=== PATIENT | female | born 1955 | race Caucasian/White ===

== ENCOUNTER 2021-05-24 19:30 | Inpatient (IN) | payer BC, MEDICARE ==
[~2021-05-24] VITALS: Ht 160 cm; Wt 90.0 kg
[2021-05-24] VITALS (9 sets, daily range): BP systolic 117–146; BP diastolic 70–85
--- NOTE | 2021-05-24 20:00 | NUR ---
Patient transferred from [facility] via helicopter, in need of a higher level of care due to Covid+ Symptoms to room 108 via cart at 1920, accompanied by RNx2 and Flight RNx2. Patient A/Ox4, denies pain, wearing BiPap with setting of I/E 12/, rate 18, FiO1 100%. Patient reports breathing fine with BiPap. Patient also has Vick catheter placed at previous hospital. Patient oriented to ICU routine, Nursing call light, TV/Bed controls, Numeric Pain scale, Side rail policy, no visitation for Covid + patient's, and POC. All questions answered and patient verbalized understanding. See Admit Information and Admit Assessments.
--- NOTE | 2021-05-24 20:10 | NUR ---
Paged Dr Rodriguez, returned page at 2004, notified of patient's admission. Orders received to admit patient to ICU, Full Code, start Decadron 6MG IVP daily, continue Remdesivir (started at previous hospital), Cardiac diet, BR with BRP with assist, and consult Dr Fenton. Called Dr Fenton at 2009, notified of consult, orders received from Dr Rodriguez, patient on BiPap settings of I/E 12/6, rate 18, FiO2 100% and O2 saturation mid to high 90's. Orders received to start Lovenox 40MG Subcutaneous daily, ask pharmacy to dose Tocilizumab x1 tonight, continue BiPap settings, Vaportherm or BiPap to keep O2 saturation >/= 90%, portable CXR and ABGs in am. See orders. All meds to start on 05/25 except for Tocilizumab--since patient had received other meds at previous hospital today.
--- NOTE | 2021-05-24 20:45 | NUR ---
Dr Rodriguez here to assess patient, all questions answered. Dr Rodriguez to placed orders.
[2021-05-24] MEDS ORDERED: TOCILIZUMAB 400 MG in IV NS TV=100ML IV ONE (21:00)
[2021-05-24] MEDS ORDERED: TOCILIZUMAB 400 MG in IV NORMAL SALINE 100ML 80 ML IV ONE (21:00)
[2021-05-24] MEDS ORDERED: ENOXAPARIN 40 MG/0.4 ML SYRINGE. SQ SCH (21:00)
--- NOTE | 2021-05-24 21:22 | PDOC1 ---
History and Physical Date of Admission Date of Admission DATE: 05/24/21 TIME: 21:12 Identification/Chief Complaint Chief Complaint COVID-19 pneumonia Source Source: Patient History of Present Illness History of Present Illness Patient is a 65-year-old female with no significant stated past medical history who presents as a transfer from [facility] due to worsening respiratory distress after recently been admitted for COVID-19 pneumonia. She states her symptoms began with shortness of breath on 05/16/2021. Her symptoms did not improve she went to the local clinic because she thought she had pneumonia COVID-19, and tested positive for COVID-19 on 05/22/2021. She presented to [facility] the next day and was admitted for respiratory failure. She has not been vaccinated against COVID-19. She was initiated on steroids, empiric antibiotics, remdesivir, and baricitinib. She received 1 dose of remdesivir today. When she began to require BiPAP, I accepted the transfer from the hospitalist at [facility] for higher level of care. Past Medical History Past Medical History Depression Past Surgical History Past Surgical History: Cholecystectomy Family History Family History: Coronary Artery Disease, Diabetes Social History Smoke: No ALCOHOL: none Drugs: None Current Medications Current Medications Current Medications Enoxaparin Sodium (Lovenox 40mg Syringe) 40 mg Q24H SQ ; Start 05/24/21 at 21:00; Status Cancel Tocilizumab 480 mg/Sodium Chloride 100 ml @ 100 mls/hr 1X ONCE IV ; Start 05/24/21 at 21:00; Stop 05/24/21 at 21:59; Status Cancel Tocilizumab 400 mg/Sodium Chloride 100 ml @ 100 mls/hr 1X ONCE IV ; Start 05/24/21 at 21:00; Stop 05/24/21 at 21:59 Enoxaparin Sodium (Lovenox 40mg Syringe) 40 mg Q24H SQ ; Start 05/25/21 at 09:00 Allergies Allergies: Coded Allergies: No Known Drug Allergies (Unverified , 05/24/21) ROS Review of System GENERAL: No history of weight change, weakness or fevers. SKIN: No bruising, hair changes or rashes. EYES: No blurred, double or loss of vision. NOSE AND THROAT: No history of nosebleeds, hoarseness or sore throat. HEART: Denies chest pain, denies palpitations. LUNGS: Shortness of breath, cough. Denies hemoptysis, wheezing or shortness of breath. GASTROINTESTINAL: Denies nausea, vomiting, abdominal pain. GENITOURINARY: Denies dysuria, frequency, urgency, hematuria. NEUROLOGIC: Denies history of numbness, tingling, tremor or weakness. PSYCHIATRIC: Denies anxiety, denies depression. ENDOCRINE: No history of heat or cold intolerance, polyuria or polydipsia. EXTREMITIES: Denies muscle weakness, joint pain, pain on walking or stiffness. Physical Exam Physical Exam General: Alert, Oriented X3, Cooperative, No acute distress HEENT: PERRLA, EOMI Lungs: Decreased breath sounds bilaterally, no increased work of breathing, currently breathing comfortably on BiPAP. Heart: RRR, no murmurs Cardiovascular: S1, S2 Abdomen: Normal bowel sounds, Soft, No tenderness Extremities: No clubbing, No cyanosis Skin: No rashes, No significant lesion Neuro: Normal speech, Normal tone, Sensation intact Psych/Mental Status: Mental status NL, Mood NL Vitals Vitals Vital Signs Date Time Temp Pulse Resp B/P (MAP) Pulse Ox O2 Delivery O2 Flow Rate FiO2 05/24/21 19:35 99 BiPAP/CPAP VTE Prophylaxis Ordered VTE Prophylaxis Devices: No VTE Pharmacological Prophylaxi: Yes Assessment/Plan Assessment/Plan Acute respiratory failure with hypoxia COVID-19 pneumonia History depression Plan: Patient has been admitted to the ICU Consultation placed to pulmonology We will continue treatment with remdesivir, and monitor daily LFTs Decadron 6 mg daily Will obtain CRP and gauge for appropriateness of Actemra Symptomatic management FEN - Cardiac diet PPX - Lovenox FULL CODE Dispo - inpatient for above Patient names her mother (Benita Baires) as surrogate decision-maker Justifications for Admission Other Justification KIRILL TIM MD May 24, 2021 21:22
[2021-05-24] MEDS ORDERED: 0.9 % SODIUM CHLORIDE 10 ML DISP.SYRIN. IV PRN (21:30)
[2021-05-24] MEDS ORDERED: MAGNESIUM HYDROXIDE 2,400 MG/30 ML ORAL.SUSP. PO PRN (21:30)
[2021-05-24] MEDS ORDERED: HYDROcodone/APAP 5/325MG 1 TAB TABLET PO PRN (21:30)
[2021-05-24] MEDS ORDERED: ONDANSETRON PF 4 MG/2 ML VIAL. IVP PRN (21:30)
[2021-05-24] MEDS ORDERED: diphenhydrAMINE 50 MG/ML VIAL IVP PRN (21:30)
[2021-05-24] MEDS ORDERED: cefTRIAXone IV Push 1 GM VIAL. IVP SCH (22:00)
[2021-05-25] VITALS (23 sets, daily range): BP systolic 104–131; BP diastolic 62–80
--- NOTE | 2021-05-25 04:58 | RAD ---
XR CHEST 1V History: Reason: Covid + / Spl. Instructions: / History: Shortness of breath Comparison: None. Findings: Mild multifocal ill-defined opacities bilaterally. Small right pleural effusion. Portable technique a ccentuates cardiac size. No pneumothorax. Impression: 1. Mild multifocal ill-defined opacities bilaterally, can be seen with viral pneumonia. 2. Small right pleural effusion. Electronically signed by: Kartik Zapata DO (05/25/2021 4:56 AM) [facility]
[2021-05-25 05:37] LABS: BASO % 0 % (0-3); EOS % 0 % (0-3); HEMATOCRIT 43.2 % (36.0-47.0); HEMOGLOBIN 14.3 g/dL (12.0-15.5); LYMPH # 0.6 x10^3/uL (1.0-4.8); LYMPH % 8 % (24-48); MEAN CORPUSCULAR HEMOGLOBIN 29 pg (25-35); MEAN CORPUSCULAR HGB CONC 33 g/dL (31-37); MEAN CORPUSCULAR VOLUME 87 fL (79-100); MONO # 0.4 x10^3/uL (0.0-1.1); MONO % 6 % (0-9); NEUT % 87 % (31-73); PLATELET COUNT 180 x10^3/uL (140-400); RED BLOOD COUNT 4.99 x10^6/uL (3.50-5.40); WHITE BLOOD COUNT 8.1 x10^3/uL (4.0-11.0)
[2021-05-25 06:29] LABS: ALBUMIN 2.2 g/dL (3.4-5.0); CALCIUM 7.9 mg/dL (8.5-10.1); CREATININE 0.7 mg/dL (0.6-1.0); DIRECT BILIRUBIN 0.1 mg/dL (0.0-0.2); GFR 83.5; POTASSIUM 3.4 mmol/L (3.5-5.1); TOTAL BILIRUBIN 0.3 mg/dL (0.2-1.0); TOTAL PROTEIN 5.7 g/dL (6.4-8.2)
[2021-05-25 07:48] LABS: BASE EXCESS COOX 4 mmol/L (-3-3); HCO3 COOX 27 mmol/L (21-28); METHEMOGLOBIN 0.2 % (0.0-1.9); OXYHEMOGLOBIN 89.9 %; PCO2 COOX 36 mmHg (35-46); PO2 COOX 57 mmHg (65-108); SAT O2 COOX 90 % (92-99)
[2021-05-25] MEDS: REMDESIVIR 100mg in NORMAL SALINE 250ML X 4 DAYS IV SCH (09:33)
[2021-05-25] MEDS: DEXAMETHASONE SOD PHOS 4 MG/ML VIAL IVP SCH (09:36)
[2021-05-25] MEDS: guaiFENesin/CODEINE 100mg/10mg 5 ML LIQUID PO PRN (09:37)
[2021-05-25] MEDS: LACTOBACILLUS RHAMNOSUS GG 1 CAPSULE. PO SCH ×2 (09:37→20:34)
[2021-05-25] MEDS: ZINC SULFATE 220 MG CAPSULE. PO SCH (09:37)
[2021-05-25] MEDS: ASCORBIC ACID 500 MG TABLET PO SCH ×2 (09:37→20:34)
[2021-05-25] MEDS: ENOXAPARIN 40 MG/0.4 ML SYRINGE. SQ SCH (09:39)
[2021-05-25] MEDS: cefTRIAXone IV Push 1 GM VIAL. IVP SCH (09:39)
--- NOTE | 2021-05-25 13:52 | PDOC ---
PULMONARY PROGRESS NOTES DATE: 05/25/21 TIME: 13:50 Vitals Vital Signs Date Time Temp Pulse Resp B/P (MAP) Pulse Ox O2 Delivery O2 Flow Rate FiO2 05/25/21 11:28 93 VAPOTHERM 05/25/21 06:00 46 18 121/72 (88) 40.0 05/25/21 04:00 98.4 98.4 Labs Laboratory Tests Test 05/24/21 22:10 05/25/21 04:45 05/25/21 07:43 C-Reactive Protein, Quantitative 32.1 mg/L (0-3.3) White Blood Count 8.1 x10^3/uL (4.0-11.0) Red Blood Count 4.99 x10^6/uL (3.50-5.40) Hemoglobin 14.3 g/dL (12.0-15.5) Hematocrit 43.2 % (36.0-47.0) Mean Corpuscular Volume 87 fL (79-100) Mean Corpuscular Hemoglobin 29 pg (25-35) Mean Corpuscular Hemoglobin Concent 33 g/dL (31-37) Red Cell Distribution Width 13.0 % (11.5-14.5) Platelet Count 180 x10^3/uL (140-400) Neutrophils (%) (Auto) 87 % (31-73) Lymphocytes (%) (Auto) 8 % (24-48) Monocytes (%) (Auto) 6 % (0-9) Eosinophils (%) (Auto) 0 % (0-3) Basophils (%) (Auto) 0 % (0-3) Neutrophils # (Auto) 7.0 x10^3/uL (1.8-7.7) Lymphocytes # (Auto) 0.6 x10^3/uL (1.0-4.8) Monocytes # (Auto) 0.4 x10^3/uL (0.0-1.1) Eosinophils # (Auto) 0.0 x10^3/uL (0.0-0.7) Basophils # (Auto) 0.0 x10^3/uL (0.0-0.2) D-Dimer (Hui) 1.42 ug/mlFEU (0.00-0.50) Sodium Level 143 mmol/L (136-145) Potassium Level 3.4 mmol/L (3.5-5.1) Chloride Level 107 mmol/L (98-107) Carbon Dioxide Level 30 mmol/L (21-32) Anion Gap 6 (6-14) Blood Urea Nitrogen 21 mg/dL (7-20) Creatinine 0.7 mg/dL (0.6-1.0) Estimated GFR (Cockcroft-Gault) 83.5 Glucose Level 140 mg/dL (70-99) Calcium Level 7.9 mg/dL (8.5-10.1) Ferritin 939 ng/mL (8-252) Total Bilirubin 0.3 mg/dL (0.2-1.0) Direct Bilirubin 0.1 mg/dL (0.0-0.2) Aspartate Amino Transf (AST/SGOT) 29 U/L (15-37) Alanine Aminotransferase (ALT/SGPT) 33 U/L (14-59) Alkaline Phosphatase 66 U/L (46-116) Lactate Dehydrogenase 283 U/L (81-234) Total Protein 5.7 g/dL (6.4-8.2) Albumin 2.2 g/dL (3.4-5.0) O2 Saturation 90 % (92-99) Arterial Blood pH 7.50 (7.35-7.45) Arterial Blood pCO2 at Patient Temp 36 mmHg (35-46) Arterial Blood pO2 at Patient Temp 57 mmHg (65-108) Arterial Blood HCO3 27 mmol/L (21-28) Arterial Blood Base Excess 4 mmol/L (-3-3) Oxyhemoglobin 89.9 % Methemoglobin 0.2 % (0.0-1.9) Carbon Monoxide, Quantitative 0.3 % (0.0-1.9) FiO2 100% vapo Laboratory Tests Test 05/24/21 22:10 05/25/21 04:45 05/25/21 07:43 C-Reactive Protein, Quantitative 32.1 mg/L (0-3.3) White Blood Count 8.1 x10^3/uL (4.0-11.0) Red Blood Count 4.99 x10^6/uL (3.50-5.40) Hemoglobin 14.3 g/dL (12.0-15.5) Hematocrit 43.2 % (36.0-47.0) Mean Corpuscular Volume 87 fL (79-100) Mean Corpuscular Hemoglobin 29 pg (25-35) Mean Corpuscular Hemoglobin Concent 33 g/dL (31-37) Red Cell Distribution Width 13.0 % (11.5-14.5) Platelet Count 180 x10^3/uL (140-400) Neutrophils (%) (Auto) 87 % (31-73) Lymphocytes (%) (Auto) 8 % (24-48) Monocytes (%) (Auto) 6 % (0-9) Eosinophils (%) (Auto) 0 % (0-3) Basophils (%) (Auto) 0 % (0-3) Neutrophils # (Auto) 7.0 x10^3/uL (1.8-7.7) Lymphocytes # (Auto) 0.6 x10^3/uL (1.0-4.8) Monocytes # (Auto) 0.4 x10^3/uL (0.0-1.1) Eosinophils # (Auto) 0.0 x10^3/uL (0.0-0.7) Basophils # (Auto) 0.0 x10^3/uL (0.0-0.2) D-Dimer (Hui) 1.42 ug/mlFEU (0.00-0.50) Sodium Level 143 mmol/L (136-145) Potassium Level 3.4 mmol/L (3.5-5.1) Chloride Level 107 mmol/L (98-107) Carbon Dioxide Level 30 mmol/L (21-32) Anion Gap 6 (6-14) Blood Urea Nitrogen 21 mg/dL (7-20) Creatinine 0.7 mg/dL (0.6-1.0) Estimated GFR (Cockcroft-Gault) 83.5 Glucose Level 140 mg/dL (70-99) Calcium Level 7.9 mg/dL (8.5-10.1) Ferritin 939 ng/mL (8-252) Total Bilirubin 0.3 mg/dL (0.2-1.0) Direct Bilirubin 0.1 mg/dL (0.0-0.2) Aspartate Amino Transf (AST/SGOT) 29 U/L (15-37) Alanine Aminotransferase (ALT/SGPT) 33 U/L (14-59) Alkaline Phosphatase 66 U/L (46-116) Lactate Dehydrogenase 283 U/L (81-234) Total Protein 5.7 g/dL (6.4-8.2) Albumin 2.2 g/dL (3.4-5.0) O2 Saturation 90 % (92-99) Arterial Blood pH 7.50 (7.35-7.45) Arterial Blood pCO2 at Patient Temp 36 mmHg (35-46) Arterial Blood pO2 at Patient Temp 57 mmHg (65-108) Arterial Blood HCO3 27 mmol/L (21-28) Arterial Blood Base Excess 4 mmol/L (-3-3) Oxyhemoglobin 89.9 % Methemoglobin 0.2 % (0.0-1.9) Carbon Monoxide, Quantitative 0.3 % (0.0-1.9) FiO2 100% vapo Impression . Full note dictated COVID-19 viral pneumonia respiratory failure CINDY SOLORIO MD May 25, 2021 13:52
--- NOTE | 2021-05-25 16:33 | PDOC ---
[employer] PROGRESS NOTE Date of Service DOS: DATE: 05/25/21 TIME: 16:32 Chief Complaint Chief Complaint Acute respiratory failure with hypoxia sepsis, obese, BMI 36 COVID-19 pneumonia History depression severe malnutrition History of Present Illness History of Present Illness pt seen, COVD care in ICU Consultation placed to pulmonology remdesmiranda, and monitor daily LFTs Decadron 6 mg IV FULL CODE Vitals/I&O Vitals/I&O: Vital Signs Date Time Temp Pulse Resp B/P (MAP) Pulse Ox O2 Delivery O2 Flow Rate FiO2 05/25/21 15:00 57 24 110/66 (81) 95 Vapotherm 40.0 05/25/21 12:00 98.0 98.0 I & O 05/24/21 05/24/21 05/25/21 15:00 23:00 07:00 Intake Total 240 ml 340 ml Output Total 120 ml 310 ml Balance 120 ml 30 ml Physical Exam General: Alert, mild distress Heart: Regular rate Lungs: Clear Abdomen: Soft Extremities: No cyanosis Labs Labs: Laboratory Tests Test 05/24/21 22:10 05/25/21 04:45 05/25/21 07:43 C-Reactive Protein, Quantitative 32.1 mg/L (0-3.3) White Blood Count 8.1 x10^3/uL (4.0-11.0) Red Blood Count 4.99 x10^6/uL (3.50-5.40) Hemoglobin 14.3 g/dL (12.0-15.5) Hematocrit 43.2 % (36.0-47.0) Mean Corpuscular Volume 87 fL (79-100) Mean Corpuscular Hemoglobin 29 pg (25-35) Mean Corpuscular Hemoglobin Concent 33 g/dL (31-37) Red Cell Distribution Width 13.0 % (11.5-14.5) Platelet Count 180 x10^3/uL (140-400) Neutrophils (%) (Auto) 87 % (31-73) Lymphocytes (%) (Auto) 8 % (24-48) Monocytes (%) (Auto) 6 % (0-9) Eosinophils (%) (Auto) 0 % (0-3) Basophils (%) (Auto) 0 % (0-3) Neutrophils # (Auto) 7.0 x10^3/uL (1.8-7.7) Lymphocytes # (Auto) 0.6 x10^3/uL (1.0-4.8) Monocytes # (Auto) 0.4 x10^3/uL (0.0-1.1) Eosinophils # (Auto) 0.0 x10^3/uL (0.0-0.7) Basophils # (Auto) 0.0 x10^3/uL (0.0-0.2) D-Dimer (Hui) 1.42 ug/mlFEU (0.00-0.50) Sodium Level 143 mmol/L (136-145) Potassium Level 3.4 mmol/L (3.5-5.1) Chloride Level 107 mmol/L (98-107) Carbon Dioxide Level 30 mmol/L (21-32) Anion Gap 6 (6-14) Blood Urea Nitrogen 21 mg/dL (7-20) Creatinine 0.7 mg/dL (0.6-1.0) Estimated GFR (Cockcroft-Gault) 83.5 Glucose Level 140 mg/dL (70-99) Calcium Level 7.9 mg/dL (8.5-10.1) Ferritin 939 ng/mL (8-252) Total Bilirubin 0.3 mg/dL (0.2-1.0) Direct Bilirubin 0.1 mg/dL (0.0-0.2) Aspartate Amino Transf (AST/SGOT) 29 U/L (15-37) Alanine Aminotransferase (ALT/SGPT) 33 U/L (14-59) Alkaline Phosphatase 66 U/L (46-116) Lactate Dehydrogenase 283 U/L (81-234) Total Protein 5.7 g/dL (6.4-8.2) Albumin 2.2 g/dL (3.4-5.0) O2 Saturation 90 % (92-99) Arterial Blood pH 7.50 (7.35-7.45) Arterial Blood pCO2 at Patient Temp 36 mmHg (35-46) Arterial Blood pO2 at Patient Temp 57 mmHg (65-108) Arterial Blood HCO3 27 mmol/L (21-28) Arterial Blood Base Excess 4 mmol/L (-3-3) Oxyhemoglobin 89.9 % Methemoglobin 0.2 % (0.0-1.9) Carbon Monoxide, Quantitative 0.3 % (0.0-1.9) FiO2 100% vapo Review of Systems Review of Systems: nuasea cough weakness, pain Comment Review of Relevant I have reviewed the following items trinh (where applicable) has been applied. Medications: Current Medications Medications (Trade) Dose Ordered Sig/Citlali Route PRN Reason Start Time Stop Time Status Last Admin Dose Admin Tocilizumab 400 mg/Sodium Chloride 100 ml @ 100 mls/hr 1X ONCE IV 05/24/21 21:00 05/24/21 21:59 DC 05/24/21 22:37 Enoxaparin Sodium (Lovenox 40mg Syringe) 40 mg Q24H SQ 05/25/21 09:00 05/25/21 09:39 Dexamethasone Sodium Phosphate (Decadron) 6 mg DAILY IVP 05/25/21 09:00 05/25/21 09:36 Remdesivir 100 mg/ Sodium Chloride 230 ml @ 460 mls/hr Q24H IV 05/25/21 09:00 05/28/21 09:29 05/25/21 09:33 Ascorbic Acid (Vitamin C) 500 mg BID PO 05/25/21 09:00 06/08/21 08:59 05/25/21 09:37 Zinc Sulfate (Orazinc) 440 mg DAILY PO 05/25/21 09:00 06/08/21 08:59 05/25/21 09:37 Guaifenesin/ Codeine Phosphate (Robitussin Ac) 5 ml PRN Q6HRS PRN PO COUGH 2ND CHOICE 05/24/21 21:30 05/25/21 09:37 Ceftriaxone Sodium (Rocephin) 1 gm DAILY IVP 05/25/21 09:00 05/25/21 09:39 Lactobacillus Rhamnosus (Culturelle) 1 cap BID PO 05/25/21 09:00 05/25/21 09:37 Justifications for Admission General Conditions Other justification for admit: Acute respiratory failure with hypoxia, COVID-19 pneumonia Other Justification ALCIDES VELASCO MD May 25, 2021 16:33
--- NOTE | 2021-05-25 16:48 | NUR ---
SS following for discharge planning. SS reviewed pt chart and discussed with RN. Pt is from home and is currently on Vapotherm at 40 liters and 100%. COVID19 positive. Pt on IV Rocephin, IV Decadron, and IV Remdesivir. SS will continue to follow for discharge planning.
--- NOTE | 2021-05-25 19:11 | CONS ---
DATE OF CONSULTATION: 05/25/2021 ATTENDING PHYSICIAN: Dr. Rodriguez. REASON FOR CONSULTATION: The patient is seen in pulmonary consultation at the request of Dr. Rodriguez for acute hypoxemic respiratory failure related to COVID-19. HISTORY OF PRESENT ILLNESS: The patient is a 65-year-old non vaccinated individual with no significant past medical history except for depression, was transferred from [facility] due to increasing shortness of breath and respiratory distress. She was admitted with COVID-19 pneumonia. Apparently, there is no Pulmonary Services at [facility]. She was transferred to the hospital for further management. She had some symptoms of shortness of breath on 05/16. Her symptoms are not improved, went to the local clinic and tested positive on the 05/22. She presented to the hospital the following day in respiratory distress. She was admitted. She was initiated on steroids, empiric antibiotics, remdesivir. She was also given baricitinib. The patient was transferred last evening, I was called with her clinical presentation. At that time, she was on BiPAP. She is currently on 40 liters flow 100% FiO2. She feels better. She states she prefers the Vapotherm. Blood gas last evening on Vapotherm pH of 7.50, PaCO2 of 36, pO2 of 57. White count was normal. She had lymphopenia. D-dimer was 1.42. Electrolytes were noted. Potassium was 3.4. Last evening when I was contacted, I continued the IV remdesivir and in addition, the patient was given tocilizumab x 1. PAST MEDICAL AND PAST SURGICAL HISTORY: As indicated above, depression. Otherwise, she has had previous cholecystectomy. FAMILY HISTORY: Coronary artery disease. SOCIAL HISTORY: She works for the [employer], she has never smoked. REVIEW OF SYSTEMS: As indicated above, otherwise a 10-point system was reviewed and negative. PHYSICAL EXAMINATION: GENERAL: The patient was seen during the COVID-19 pandemic. On visual inspection, she had no evidence of respiratory distress, not utilizing accessory muscles. No paroxysmal breathing pattern. She was able to complete full sentences. SKIN: No skin rashes. LABORATORY DATA: Reviewed as indicated above. White count was normal, hemoglobin and hematocrit were noted. Electrolytes were noted. Potassium is 3.4. D-dimer was elevated. Chest x-ray, compatible with viral pneumonia. IMPRESSION: 1. Acute hypoxemic respiratory failure secondary to viral pneumonia. 2. Possible bacterial pneumonia. 3. Abnormal x-ray. 4. Unvaccinated 65-year-old female with positive SARS-CoV-2. 5. Depression. PLAN: 1. Continue current support with oxygen supplementation. 2. Steroids. 3. Complete course of remdesivir. 4. Status post tocilizumab and baricitinib. I do appreciate the privilege in sharing in the patient's care. MARICARMEN DR: Seth TID: [id number]
[2021-05-26] VITALS (24 sets, daily range): BP systolic 98–136; BP diastolic 54–89
[2021-05-26] MEDS: guaiFENesin ORAL 200 MG/10 ML LIQUID. PO PRN (02:50)
[2021-05-26 06:07] LABS: CALCIUM 7.9 mg/dL (8.5-10.1); CREATININE 0.6 mg/dL (0.6-1.0); GFR 99.7; POTASSIUM 3.6 mmol/L (3.5-5.1)
[2021-05-26 06:13] LABS: ALBUMIN 2.2 g/dL (3.4-5.0); DIRECT BILIRUBIN 0.1 mg/dL (0.0-0.2); TOTAL BILIRUBIN 0.4 mg/dL (0.2-1.0); TOTAL PROTEIN 5.4 g/dL (6.4-8.2)
[2021-05-26] MEDS: ENOXAPARIN 40 MG/0.4 ML SYRINGE. SQ SCH (07:55)
[2021-05-26] MEDS: guaiFENesin/CODEINE 100mg/10mg 5 ML LIQUID PO PRN ×2 (07:55→20:01)
[2021-05-26] MEDS: ZINC SULFATE 220 MG CAPSULE. PO SCH (07:56)
[2021-05-26] MEDS: LACTOBACILLUS RHAMNOSUS GG 1 CAPSULE. PO SCH ×2 (07:56→20:01)
[2021-05-26] MEDS: ASCORBIC ACID 500 MG TABLET PO SCH ×2 (07:56→20:01)
[2021-05-26] MEDS: DEXAMETHASONE SOD PHOS 4 MG/ML VIAL IVP SCH (07:56)
[2021-05-26] MEDS: REMDESIVIR 100mg in NORMAL SALINE 250ML X 4 DAYS IV SCH (08:45)
[2021-05-26] MEDS: cefTRIAXone IV Push 1 GM VIAL. IVP SCH (08:45)
--- NOTE | 2021-05-26 08:54 | PDOC ---
PULMONARY PROGRESS NOTES DATE: 05/26/21 TIME: 08:54 Subjective Patient feels no worse Currently on 40 L flow, 100% FiO2 Vitals Vital Signs Date Time Temp Pulse Resp B/P (MAP) Pulse Ox O2 Delivery O2 Flow Rate FiO2 05/26/21 07:52 95 VAPOTHERM 40.0 05/26/21 07:00 66 25 136/81 (99) 05/26/21 04:00 98.0 98.0 Comments Patient seen during the COVID- pandemic, no significant respiratory distress, able to complete full sentences No accessory muscles being utilized, no significant rashes. Labs Laboratory Tests Test 05/24/21 22:10 05/25/21 04:45 05/25/21 07:43 05/26/21 05:25 C-Reactive Protein, Quantitative 32.1 mg/L (0-3.3) White Blood Count 8.1 x10^3/uL (4.0-11.0) Red Blood Count 4.99 x10^6/uL (3.50-5.40) Hemoglobin 14.3 g/dL (12.0-15.5) Hematocrit 43.2 % (36.0-47.0) Mean Corpuscular Volume 87 fL (79-100) Mean Corpuscular Hemoglobin 29 pg (25-35) Mean Corpuscular Hemoglobin Concent 33 g/dL (31-37) Red Cell Distribution Width 13.0 % (11.5-14.5) Platelet Count 180 x10^3/uL (140-400) Neutrophils (%) (Auto) 87 % (31-73) Lymphocytes (%) (Auto) 8 % (24-48) Monocytes (%) (Auto) 6 % (0-9) Eosinophils (%) (Auto) 0 % (0-3) Basophils (%) (Auto) 0 % (0-3) Neutrophils # (Auto) 7.0 x10^3/uL (1.8-7.7) Lymphocytes # (Auto) 0.6 x10^3/uL (1.0-4.8) Monocytes # (Auto) 0.4 x10^3/uL (0.0-1.1) Eosinophils # (Auto) 0.0 x10^3/uL (0.0-0.7) Basophils # (Auto) 0.0 x10^3/uL (0.0-0.2) D-Dimer (Hui) 1.42 ug/mlFEU (0.00-0.50) Sodium Level 143 mmol/L (136-145) 145 mmol/L (136-145) Potassium Level 3.4 mmol/L (3.5-5.1) 3.6 mmol/L (3.5-5.1) Chloride Level 107 mmol/L (98-107) 108 mmol/L (98-107) Carbon Dioxide Level 30 mmol/L (21-32) 28 mmol/L (21-32) Anion Gap 6 (6-14) 9 (6-14) Blood Urea Nitrogen 21 mg/dL (7-20) 21 mg/dL (7-20) Creatinine 0.7 mg/dL (0.6-1.0) 0.6 mg/dL (0.6-1.0) Estimated GFR (Cockcroft-Gault) 83.5 99.7 Glucose Level 140 mg/dL (70-99) 111 mg/dL (70-99) Calcium Level 7.9 mg/dL (8.5-10.1) 7.9 mg/dL (8.5-10.1) Ferritin 939 ng/mL (8-252) Total Bilirubin 0.3 mg/dL (0.2-1.0) 0.4 mg/dL (0.2-1.0) Direct Bilirubin 0.1 mg/dL (0.0-0.2) 0.1 mg/dL (0.0-0.2) Aspartate Amino Transf (AST/SGOT) 29 U/L (15-37) 38 U/L (15-37) Alanine Aminotransferase (ALT/SGPT) 33 U/L (14-59) 52 U/L (14-59) Alkaline Phosphatase 66 U/L (46-116) 57 U/L (46-116) Lactate Dehydrogenase 283 U/L (81-234) Total Protein 5.7 g/dL (6.4-8.2) 5.4 g/dL (6.4-8.2) Albumin 2.2 g/dL (3.4-5.0) 2.2 g/dL (3.4-5.0) O2 Saturation 90 % (92-99) Arterial Blood pH 7.50 (7.35-7.45) Arterial Blood pCO2 at Patient Temp 36 mmHg (35-46) Arterial Blood pO2 at Patient Temp 57 mmHg (65-108) Arterial Blood HCO3 27 mmol/L (21-28) Arterial Blood Base Excess 4 mmol/L (-3-3) Oxyhemoglobin 89.9 % Methemoglobin 0.2 % (0.0-1.9) Carbon Monoxide, Quantitative 0.3 % (0.0-1.9) FiO2 100% vapo Laboratory Tests Test 05/26/21 05:25 Sodium Level 145 mmol/L (136-145) Potassium Level 3.6 mmol/L (3.5-5.1) Chloride Level 108 mmol/L (98-107) Carbon Dioxide Level 28 mmol/L (21-32) Anion Gap 9 (6-14) Blood Urea Nitrogen 21 mg/dL (7-20) Creatinine 0.6 mg/dL (0.6-1.0) Estimated GFR (Cockcroft-Gault) 99.7 Glucose Level 111 mg/dL (70-99) Calcium Level 7.9 mg/dL (8.5-10.1) Total Bilirubin 0.4 mg/dL (0.2-1.0) Direct Bilirubin 0.1 mg/dL (0.0-0.2) Aspartate Amino Transf (AST/SGOT) 38 U/L (15-37) Alanine Aminotransferase (ALT/SGPT) 52 U/L (14-59) Alkaline Phosphatase 57 U/L (46-116) Total Protein 5.4 g/dL (6.4-8.2) Albumin 2.2 g/dL (3.4-5.0) Impression . IMPRESSION: 1. Acute hypoxemic respiratory failure secondary to viral pneumonia. 2. Possible bacterial pneumonia. 3. Abnormal x-ray. 4. Unvaccinated 65-year-old female with positive SARS-CoV-2. 5. Depression. Plan . Updated 05/26 Continue oxygen supplementation at 4 L flow, 100% FiO2 Complete remdesivir Steroids DVT prophylaxis Nutritional support Liver chemistries noted PLAN: 1. Continue current support with oxygen supplementation. 2. Steroids. 3. Complete course of remdesivir. 4. Status post tocilizumab and baricitinib. I do appreciate the privilege in sharing in the patient's care. CINDY SOLORIO MD May 26, 2021 08:54
--- NOTE | 2021-05-26 14:17 | PDOC ---
[employer] PROGRESS NOTE Date of Service DOS: DATE: 05/26/21 TIME: 14:17 Chief Complaint Chief Complaint Acute respiratory failure with hypoxia sepsis, obese, BMI 36 COVID-19 pneumonia History depression severe malnutrition History of Present Illness History of Present Illness pt seen, COVD care in ICU Consultation placed to pulmonology miguel angel, and monitor daily LFTs Decadron 6 mg IV FULL CODE Vitals/I&O Vitals/I&O: Vital Signs Date Time Temp Pulse Resp B/P (MAP) Pulse Ox O2 Delivery O2 Flow Rate FiO2 05/26/21 13:00 56 28 110/74 (86) 97 Vapotherm 40.0 05/26/21 12:00 98.0 98.0 I & O 05/25/21 05/25/21 05/26/21 15:00 23:00 07:00 Intake Total 600 ml Output Total 410 ml 265 ml 225 ml Balance 190 ml -265 ml -225 ml Physical Exam General: Alert, mild distress Heart: Regular rate Abdomen: Soft Extremities: No cyanosis Labs Labs: Laboratory Tests Test 05/26/21 05:25 Sodium Level 145 mmol/L (136-145) Potassium Level 3.6 mmol/L (3.5-5.1) Chloride Level 108 mmol/L (98-107) Carbon Dioxide Level 28 mmol/L (21-32) Anion Gap 9 (6-14) Blood Urea Nitrogen 21 mg/dL (7-20) Creatinine 0.6 mg/dL (0.6-1.0) Estimated GFR (Cockcroft-Gault) 99.7 Glucose Level 111 mg/dL (70-99) Calcium Level 7.9 mg/dL (8.5-10.1) Total Bilirubin 0.4 mg/dL (0.2-1.0) Direct Bilirubin 0.1 mg/dL (0.0-0.2) Aspartate Amino Transf (AST/SGOT) 38 U/L (15-37) Alanine Aminotransferase (ALT/SGPT) 52 U/L (14-59) Alkaline Phosphatase 57 U/L (46-116) Total Protein 5.4 g/dL (6.4-8.2) Albumin 2.2 g/dL (3.4-5.0) Comment Review of Relevant I have reviewed the following items trinh (where applicable) has been applied. Justifications for Admission General Conditions Other justification for admit: Acute respiratory failure with hypoxia, COVID-19 pneumonia Other Justification ALCIDES VELASCO MD May 26, 2021 14:17
--- NOTE | 2021-05-26 15:13 | NUR ---
SS following up with discharge planning. SS reviewed pt chart and discussed with pt RN. Pt is currently requiring Vapotherm at 40 liters and 100%. COVID19 positive. Pt on IV Decadron, IV Rocephin, and IV Remdesivir. SS will continue to follow for discharge planning.
[2021-05-26] MEDS: STERILE WATER for RESP 2,000 ML BAG. INH PRN (20:27)
[2021-05-27] VITALS (24 sets, daily range): BP systolic 101–141; BP diastolic 57–86
[2021-05-27 05:23] LABS: CALCIUM 7.9 mg/dL (8.5-10.1); CREATININE 0.5 mg/dL (0.6-1.0); GFR 123.1; POTASSIUM 3.9 mmol/L (3.5-5.1)
--- NOTE | 2021-05-27 08:34 | PDOC ---
PULMONARY PROGRESS NOTES DATE: 05/27/21 TIME: 08:31 Subjective Patient feels slightly better and slightly less short of breath Currently on 40 L flow, 100% FiO2 Vitals Vital Signs Date Time Temp Pulse Resp B/P (MAP) Pulse Ox O2 Delivery O2 Flow Rate FiO2 05/27/21 08:04 95 VAPOTHERM 40.0 05/27/21 06:00 45 12 119/77 (91) 05/27/21 04:00 98.1 98.1 Comments Patient seen during the ID pandemic, no significant respiratory distress, able to complete full sentences No accessory muscles being utilized, no significant rashes. ROS: No Nausea, No Chest Pain, No Abdominal Pain General: Alert, Oriented X4, No acute distress HEENT: Other (unremarkable) Cardiovascular: S1, S2, Other (sinus bradycardia. hr increases when wakes up and talks.) Abdomen: Soft, Non-tender Neuro Exam: Alert, Oriented, Normal Speech, No Focal Findings Extremities: No Edema Labs Laboratory Tests Test 05/26/21 05:25 05/27/21 04:48 Sodium Level 145 mmol/L (136-145) 139 mmol/L (136-145) Potassium Level 3.6 mmol/L (3.5-5.1) 3.9 mmol/L (3.5-5.1) Chloride Level 108 mmol/L (98-107) 108 mmol/L (98-107) Carbon Dioxide Level 28 mmol/L (21-32) 26 mmol/L (21-32) Anion Gap 9 (6-14) 5 (6-14) Blood Urea Nitrogen 21 mg/dL (7-20) 19 mg/dL (7-20) Creatinine 0.6 mg/dL (0.6-1.0) 0.5 mg/dL (0.6-1.0) Estimated GFR (Cockcroft-Gault) 99.7 123.1 Glucose Level 111 mg/dL (70-99) 103 mg/dL (70-99) Calcium Level 7.9 mg/dL (8.5-10.1) 7.9 mg/dL (8.5-10.1) Total Bilirubin 0.4 mg/dL (0.2-1.0) Direct Bilirubin 0.1 mg/dL (0.0-0.2) Aspartate Amino Transf (AST/SGOT) 38 U/L (15-37) Alanine Aminotransferase (ALT/SGPT) 52 U/L (14-59) Alkaline Phosphatase 57 U/L (46-116) Total Protein 5.4 g/dL (6.4-8.2) Albumin 2.2 g/dL (3.4-5.0) Laboratory Tests Test 05/27/21 04:48 Sodium Level 139 mmol/L (136-145) Potassium Level 3.9 mmol/L (3.5-5.1) Chloride Level 108 mmol/L (98-107) Carbon Dioxide Level 26 mmol/L (21-32) Anion Gap 5 (6-14) Blood Urea Nitrogen 19 mg/dL (7-20) Creatinine 0.5 mg/dL (0.6-1.0) Estimated GFR (Cockcroft-Gault) 123.1 Glucose Level 103 mg/dL (70-99) Calcium Level 7.9 mg/dL (8.5-10.1) Impression . IMPRESSION: 1. Acute hypoxemic respiratory failure secondary to viral pneumonia. 2. Possible bacterial pneumonia. 3. Abnormal x-ray. 4. Unvaccinated 65-year-old female with positive SARS-CoV-2. 5. Depression. Plan . Updated 05/27 Continue oxygen supplementation at 4 L flow, 100% FiO2 Complete remdesivir Steroids DVT prophylaxis Nutritional support Liver chemistries noted PLAN: 1. Continue current support with oxygen supplementation. 2. Steroids. 3. Complete course of remdesivir. 4. Status post tocilizumab and baricitinib. I do appreciate the privilege in sharing in the patient's care. RENETTA WATTS MD May 27, 2021 08:34
[2021-05-27] MEDS: DEXAMETHASONE SOD PHOS 4 MG/ML VIAL IVP SCH (09:41)
[2021-05-27] MEDS: REMDESIVIR 100mg in NORMAL SALINE 250ML X 4 DAYS IV SCH (09:41)
[2021-05-27] MEDS: ENOXAPARIN 40 MG/0.4 ML SYRINGE. SQ SCH (09:42)
[2021-05-27] MEDS: LACTOBACILLUS RHAMNOSUS GG 1 CAPSULE. PO SCH ×2 (09:42→20:26)
[2021-05-27] MEDS: ASCORBIC ACID 500 MG TABLET PO SCH ×2 (09:42→20:26)
[2021-05-27] MEDS: ZINC SULFATE 220 MG CAPSULE. PO SCH (09:47)
[2021-05-27 12:15] LABS: ALBUMIN 1.8 g/dL (3.4-5.0); DIRECT BILIRUBIN 0.1 mg/dL (0.0-0.2); TOTAL BILIRUBIN 0.5 mg/dL (0.2-1.0); TOTAL PROTEIN 5.2 g/dL (6.4-8.2)
[2021-05-27] MEDS: cefTRIAXone IV Push 1 GM VIAL. IVP SCH (12:59)
[2021-05-27] MEDS: guaiFENesin/CODEINE 100mg/10mg 5 ML LIQUID PO PRN ×2 (13:59→22:53)
[2021-05-27] MEDS: STERILE WATER for RESP 2,000 ML BAG. INH PRN (20:29)
[2021-05-28] VITALS (24 sets, daily range): BP systolic 83–133; BP diastolic 49–90
[2021-05-28 06:00] LABS: CALCIUM 7.9 mg/dL (8.5-10.1); CREATININE 0.6 mg/dL (0.6-1.0); GFR 99.7; POTASSIUM 3.7 mmol/L (3.5-5.1)
[2021-05-28] MEDS: LACTOBACILLUS RHAMNOSUS GG 1 CAPSULE. PO SCH ×2 (08:31→20:01)
[2021-05-28] MEDS: ASCORBIC ACID 500 MG TABLET PO SCH ×2 (08:31→20:01)
[2021-05-28] MEDS: ZINC SULFATE 220 MG CAPSULE. PO SCH (08:31)
[2021-05-28] MEDS: DEXAMETHASONE SOD PHOS 4 MG/ML VIAL IVP SCH (08:31)
[2021-05-28] MEDS: ENOXAPARIN 40 MG/0.4 ML SYRINGE. SQ SCH (08:32)
--- NOTE | 2021-05-28 08:54 | PDOC ---
PULMONARY PROGRESS NOTES DATE: 05/28/21 TIME: 08:48 Subjective This is a previously healthy, non-smoking female who developed acute hypoxic respiratory failure secondary to COVID-19 pneumonia. She is continuing to receive remdesivir, dexamethasone, and low molecular weight heparin. She feels better with less shortness of breath and less cough. She is requiring high flow oxygen via Vapotherm. When she is being bathed and moves about, she still desaturates. Vitals Vital Signs Date Time Temp Pulse Resp B/P (MAP) Pulse Ox O2 Delivery O2 Flow Rate FiO2 05/28/21 08:17 94 VAPOTHERM 40.0 05/28/21 06:00 48 19 112/73 (86) 05/28/21 04:00 98.0 98.0 Comments Patient seen during the COVID-19 pandemic, no significant respiratory distress, able to complete full sentences No accessory muscles being utilized, no significant rashes. ROS: No Nausea, No Chest Pain, No Abdominal Pain General: Alert, Oriented X4, No acute distress HEENT: Other (unremarkable) Cardiovascular: S1, S2, Other (sinus bradycardia. hr increases when wakes up and talks.) Abdomen: Soft, Non-tender Neuro Exam: Alert, Oriented, Normal Speech, No Focal Findings Extremities: No Edema Labs Laboratory Tests Test 05/27/21 04:48 05/28/21 05:00 Sodium Level 139 mmol/L (136-145) 142 mmol/L (136-145) Potassium Level 3.9 mmol/L (3.5-5.1) 3.7 mmol/L (3.5-5.1) Chloride Level 108 mmol/L (98-107) 106 mmol/L (98-107) Carbon Dioxide Level 26 mmol/L (21-32) 29 mmol/L (21-32) Anion Gap 5 (6-14) 7 (6-14) Blood Urea Nitrogen 19 mg/dL (7-20) 19 mg/dL (7-20) Creatinine 0.5 mg/dL (0.6-1.0) 0.6 mg/dL (0.6-1.0) Estimated GFR (Cockcroft-Gault) 123.1 99.7 Glucose Level 103 mg/dL (70-99) 98 mg/dL (70-99) Calcium Level 7.9 mg/dL (8.5-10.1) 7.9 mg/dL (8.5-10.1) Total Bilirubin 0.5 mg/dL (0.2-1.0) Direct Bilirubin 0.1 mg/dL (0.0-0.2) Aspartate Amino Transf (AST/SGOT) 49 U/L (15-37) Alanine Aminotransferase (ALT/SGPT) 63 U/L (14-59) Alkaline Phosphatase 60 U/L (46-116) Total Protein 5.2 g/dL (6.4-8.2) Albumin 1.8 g/dL (3.4-5.0) Laboratory Tests Test 05/28/21 05:00 Sodium Level 142 mmol/L (136-145) Potassium Level 3.7 mmol/L (3.5-5.1) Chloride Level 106 mmol/L (98-107) Carbon Dioxide Level 29 mmol/L (21-32) Anion Gap 7 (6-14) Blood Urea Nitrogen 19 mg/dL (7-20) Creatinine 0.6 mg/dL (0.6-1.0) Estimated GFR (Cockcroft-Gault) 99.7 Glucose Level 98 mg/dL (70-99) Calcium Level 7.9 mg/dL (8.5-10.1) Comments Diffuse infiltrates Impression . IMPRESSION: 1. Acute hypoxemic respiratory failure secondary to COVID-19 pneumonia. 2. Abnormal x-ray. 3. Unvaccinated 65-year-old female with positive SARS-CoV-2. 4. Depression. Plan . 1. Continue incomplete course of remdesivir and dexamethasone. 2. Continue anticoagulation with low molecular weight heparin. 3. Continue high flow oxygen with Vapotherm. Given her drop in oxygen saturation with minimal activity, I would not attempt to transfer her back to traditional supplemental oxygen therapy yet. 4. We will attempt to get up in chair today. RENETTA WATTS MD May 28, 2021 08:54
[2021-05-28] MEDS: cefTRIAXone IV Push 1 GM VIAL. IVP SCH (09:15)
[2021-05-28] MEDS: REMDESIVIR 100mg in NORMAL SALINE 250ML X 4 DAYS IV SCH (09:16)
[2021-05-28] MEDS: guaiFENesin/CODEINE 100mg/10mg 5 ML LIQUID PO PRN ×3 (09:21→23:55)
[2021-05-28 14:26] LABS: ALBUMIN 2.2 g/dL (3.4-5.0); DIRECT BILIRUBIN 0.2 mg/dL (0.0-0.2); TOTAL BILIRUBIN 0.5 mg/dL (0.2-1.0); TOTAL PROTEIN 5.2 g/dL (6.4-8.2)
[2021-05-28] MEDS: STERILE WATER for RESP 2,000 ML BAG. INH PRN (16:33)
--- NOTE | 2021-05-28 16:50 | PDOC ---
[employer] PROGRESS NOTE Date of Service DOS: DATE: 05/28/21 TIME: 16:50 Chief Complaint Chief Complaint LATE ENTRY, PT seen 05/27, COVID pt Acute respiratory failure with hypoxia sepsis, obese, BMI 36 COVID-19 pneumonia History depression severe malnutrition History of Present Illness History of Present Illness pt seen, COVD care in ICU Consultation placed to pulmonology remdesivir, and monitor daily LFTs Decadron 6 mg IV FULL CODE Vitals/I&O Vitals/I&O: Vital Signs Date Time Temp Pulse Resp B/P (MAP) Pulse Ox O2 Delivery O2 Flow Rate FiO2 05/28/21 16:00 60 26 122/78 (93) 91 Vapotherm 40.0 05/28/21 12:00 98.0 98.0 I & O 05/27/21 05/27/21 05/28/21 15:00 23:00 07:00 Intake Total 230 ml 350 ml 100 ml Output Total 425 ml 375 ml 235 ml Balance -195 ml -25 ml -135 ml Physical Exam General: Alert, mild distress Heart: Regular rate Abdomen: Soft Extremities: No cyanosis Labs Labs: Laboratory Tests Test 05/28/21 05:00 Sodium Level 142 mmol/L (136-145) Potassium Level 3.7 mmol/L (3.5-5.1) Chloride Level 106 mmol/L (98-107) Carbon Dioxide Level 29 mmol/L (21-32) Anion Gap 7 (6-14) Blood Urea Nitrogen 19 mg/dL (7-20) Creatinine 0.6 mg/dL (0.6-1.0) Estimated GFR (Cockcroft-Gault) 99.7 Glucose Level 98 mg/dL (70-99) Calcium Level 7.9 mg/dL (8.5-10.1) Total Bilirubin 0.5 mg/dL (0.2-1.0) Direct Bilirubin 0.2 mg/dL (0.0-0.2) Aspartate Amino Transf (AST/SGOT) 31 U/L (15-37) Alanine Aminotransferase (ALT/SGPT) 69 U/L (14-59) Alkaline Phosphatase 54 U/L (46-116) Total Protein 5.2 g/dL (6.4-8.2) Albumin 2.2 g/dL (3.4-5.0) Comment Review of Relevant I have reviewed the following items trinh (where applicable) has been applied. Justifications for Admission General Conditions Other justification for admit: Acute respiratory failure with hypoxia, COVID-19 pneumonia Other Justification ALCIDES VELASCO MD May 28, 2021 16:50
--- NOTE | 2021-05-28 17:10 | PDOC ---
[employer] PROGRESS NOTE Date of Service DOS: DATE: 05/28/21 TIME: 17:09 Chief Complaint Chief Complaint Acute respiratory failure with hypoxia sepsis, obese, BMI 36 COVID-19 pneumonia History depression severe malnutrition History of Present Illness History of Present Illness 05/28, cont COVID treatment plan pt seen, COVID care in ICU - ongoing hypoxia, weakness and lethargy - no pain Consultation placed to pulmonology remdesivir, and monitor daily LFTs Decadron 6 mg IV FULL CODE Vitals/I&O Vitals/I&O: Vital Signs Date Time Temp Pulse Resp B/P (MAP) Pulse Ox O2 Delivery O2 Flow Rate FiO2 05/28/21 16:00 60 26 122/78 (93) 91 Vapotherm 40.0 05/28/21 12:00 98.0 98.0 I & O 05/27/21 05/27/21 05/28/21 15:00 23:00 07:00 Intake Total 230 ml 350 ml 100 ml Output Total 425 ml 375 ml 235 ml Balance -195 ml -25 ml -135 ml Physical Exam General: Alert, mild distress Heart: Regular rate Abdomen: Soft Extremities: No cyanosis Labs Labs: Laboratory Tests Test 05/28/21 05:00 Sodium Level 142 mmol/L (136-145) Potassium Level 3.7 mmol/L (3.5-5.1) Chloride Level 106 mmol/L (98-107) Carbon Dioxide Level 29 mmol/L (21-32) Anion Gap 7 (6-14) Blood Urea Nitrogen 19 mg/dL (7-20) Creatinine 0.6 mg/dL (0.6-1.0) Estimated GFR (Cockcroft-Gault) 99.7 Glucose Level 98 mg/dL (70-99) Calcium Level 7.9 mg/dL (8.5-10.1) Total Bilirubin 0.5 mg/dL (0.2-1.0) Direct Bilirubin 0.2 mg/dL (0.0-0.2) Aspartate Amino Transf (AST/SGOT) 31 U/L (15-37) Alanine Aminotransferase (ALT/SGPT) 69 U/L (14-59) Alkaline Phosphatase 54 U/L (46-116) Total Protein 5.2 g/dL (6.4-8.2) Albumin 2.2 g/dL (3.4-5.0) Comment Review of Relevant I have reviewed the following items trinh (where applicable) has been applied. Justifications for Admission General Conditions Other justification for admit: Acute respiratory failure with hypoxia, COVID-19 pneumonia Other Justification ALCIDES VELASCO MD May 28, 2021 17:10
[2021-05-28] MEDS: guaiFENesin ORAL 200 MG/10 ML LIQUID. PO PRN (20:01)
[2021-05-29] VITALS (24 sets, daily range): BP systolic 83–135; BP diastolic 53–82
[2021-05-29] MEDS: guaiFENesin ORAL 200 MG/10 ML LIQUID. PO PRN ×3 (04:07→18:24)
[2021-05-29 05:30] LABS: ALBUMIN 2.2 g/dL (3.4-5.0); CALCIUM 7.9 mg/dL (8.5-10.1); CREATININE 0.6 mg/dL (0.6-1.0); DIRECT BILIRUBIN 0.1 mg/dL (0.0-0.2); GFR 99.7; POTASSIUM 3.7 mmol/L (3.5-5.1); TOTAL BILIRUBIN 0.6 mg/dL (0.2-1.0); TOTAL PROTEIN 5.1 g/dL (6.4-8.2)
[2021-05-29] MEDS: cefTRIAXone IV Push 1 GM VIAL. IVP SCH (08:07)
[2021-05-29] MEDS: ZINC SULFATE 220 MG CAPSULE. PO SCH (08:08)
[2021-05-29] MEDS: ASCORBIC ACID 500 MG TABLET PO SCH ×2 (08:08→20:12)
[2021-05-29] MEDS: LACTOBACILLUS RHAMNOSUS GG 1 CAPSULE. PO SCH ×2 (08:08→20:11)
[2021-05-29] MEDS: ENOXAPARIN 40 MG/0.4 ML SYRINGE. SQ SCH (08:08)
[2021-05-29] MEDS: DEXAMETHASONE SOD PHOS 4 MG/ML VIAL IVP SCH (08:09)
--- NOTE | 2021-05-29 09:36 | PDOC ---
PULMONARY PROGRESS NOTES DATE: 05/29/21 TIME: 09:35 Subjective Patient feels better, currently on 85% FiO2, 40 L flow Not more short of air Vitals Vital Signs Date Time Temp Pulse Resp B/P (MAP) Pulse Ox O2 Delivery O2 Flow Rate FiO2 05/29/21 08:13 98 VAPOTHERM 40.0 05/29/21 08:00 97.9 61 20 119/74 (89) 97.9 ROS: No Nausea, No Chest Pain, No Abdominal Pain General: Alert, No acute distress HEENT: Other (unremarkable) Cardiovascular: S1, S2, Other (sinus bradycardia. hr increases when wakes up and talks.) Abdomen: Soft, Non-tender Neuro Exam: Alert, Oriented, Normal Speech, No Focal Findings Extremities: No Edema Labs Laboratory Tests Test 05/28/21 05:00 05/29/21 04:40 Sodium Level 142 mmol/L (136-145) 141 mmol/L (136-145) Potassium Level 3.7 mmol/L (3.5-5.1) 3.7 mmol/L (3.5-5.1) Chloride Level 106 mmol/L (98-107) 107 mmol/L (98-107) Carbon Dioxide Level 29 mmol/L (21-32) 29 mmol/L (21-32) Anion Gap 7 (6-14) 5 (6-14) Blood Urea Nitrogen 19 mg/dL (7-20) 19 mg/dL (7-20) Creatinine 0.6 mg/dL (0.6-1.0) 0.6 mg/dL (0.6-1.0) Estimated GFR (Cockcroft-Gault) 99.7 99.7 Glucose Level 98 mg/dL (70-99) 102 mg/dL (70-99) Calcium Level 7.9 mg/dL (8.5-10.1) 7.9 mg/dL (8.5-10.1) Total Bilirubin 0.5 mg/dL (0.2-1.0) 0.6 mg/dL (0.2-1.0) Direct Bilirubin 0.2 mg/dL (0.0-0.2) 0.1 mg/dL (0.0-0.2) Aspartate Amino Transf (AST/SGOT) 31 U/L (15-37) 32 U/L (15-37) Alanine Aminotransferase (ALT/SGPT) 69 U/L (14-59) 57 U/L (14-59) Alkaline Phosphatase 54 U/L (46-116) 56 U/L (46-116) Total Protein 5.2 g/dL (6.4-8.2) 5.1 g/dL (6.4-8.2) Albumin 2.2 g/dL (3.4-5.0) 2.2 g/dL (3.4-5.0) Laboratory Tests Test 05/29/21 04:40 Sodium Level 141 mmol/L (136-145) Potassium Level 3.7 mmol/L (3.5-5.1) Chloride Level 107 mmol/L (98-107) Carbon Dioxide Level 29 mmol/L (21-32) Anion Gap 5 (6-14) Blood Urea Nitrogen 19 mg/dL (7-20) Creatinine 0.6 mg/dL (0.6-1.0) Estimated GFR (Cockcroft-Gault) 99.7 Glucose Level 102 mg/dL (70-99) Calcium Level 7.9 mg/dL (8.5-10.1) Total Bilirubin 0.6 mg/dL (0.2-1.0) Direct Bilirubin 0.1 mg/dL (0.0-0.2) Aspartate Amino Transf (AST/SGOT) 32 U/L (15-37) Alanine Aminotransferase (ALT/SGPT) 57 U/L (14-59) Alkaline Phosphatase 56 U/L (46-116) Total Protein 5.1 g/dL (6.4-8.2) Albumin 2.2 g/dL (3.4-5.0) Comments Diffuse infiltrates Impression . IMPRESSION: 1. Acute hypoxemic respiratory failure secondary to COVID-19 pneumonia. Status post remdesivir, tocilizumab. 2. Abnormal x-ray. 3. Unvaccinated 65-year-old female with positive SARS-CoV-2. 4. Depression. Plan . Updated 05/29 Complete course of remdesivir and dexamethasone Continue oxygen supplementation DVT prophylaxis Titrate FiO2 as tolerated Up to chair 05/28 1. Continue incomplete course of remdesivir and dexamethasone. 2. Continue anticoagulation with low molecular weight heparin. 3. Continue high flow oxygen with Vapotherm. Given her drop in oxygen saturation with minimal activity, I would not attempt to transfer her back to traditional supplemental oxygen therapy yet. 4. We will attempt to get up in chair today. CINDY SOLORIO MD May 29, 2021 09:36
--- NOTE | 2021-05-29 13:20 | PDOC ---
[employer] PROGRESS NOTE Date of Service DOS: DATE: 05/29/21 TIME: 13:17 Chief Complaint Chief Complaint Acute respiratory failure with hypoxia sepsis, obese, BMI 36 COVID-19 pneumonia History depression severe malnutrition Completed Remdesivir course Continue IV steroids x 10days History of Present Illness History of Present Illness 65-year-old female with no significant stated past medical history who presents as a transfer from [facility] due to worsening respiratory distress after recently been admitted for COVID-19 pneumonia. She states her symptoms began with shortness of breath on 05/16/2021. Her symptoms did not improve she went to the local clinic because she thought she had pneumonia COVID-19, and tested positive for COVID-19 on 05/22/2021. She presented to [facility] the next day and was admitted for respiratory failure. She has not been vaccinated against COVID-19. She was initiated on steroids, empiric antibiotics, remdesivir, and baricitinib. She received 1 dose of remdesivir today. When she began to require BiPAP, I accepted the transfer from the hospitalist at [facility] for higher level of care. 05/29/21 No acute events overnight. Sauraint 95% on 40L vapotherm. No more dyspneic than usual. No conerns from nursing. Patient's chart, labs, images were reviewed and discussed with RN Vitals/I&O Vitals/I&O: Vital Signs Date Time Temp Pulse Resp B/P (MAP) Pulse Ox O2 Delivery O2 Flow Rate FiO2 05/29/21 13:00 65 25 112/79 (90) 98 Vapotherm 40.0 05/29/21 11:28 98.1 98.1 I & O 05/28/21 05/28/21 05/29/21 15:00 23:00 07:00 Intake Total 430 ml 225 ml Output Total 400 ml 300 ml 225 ml Balance 30 ml -75 ml -225 ml Physical Exam General: Alert, mild distress Heart: Regular rate Abdomen: Soft Extremities: No cyanosis Labs Labs: Laboratory Tests Test 05/29/21 04:40 Sodium Level 141 mmol/L (136-145) Potassium Level 3.7 mmol/L (3.5-5.1) Chloride Level 107 mmol/L (98-107) Carbon Dioxide Level 29 mmol/L (21-32) Anion Gap 5 (6-14) Blood Urea Nitrogen 19 mg/dL (7-20) Creatinine 0.6 mg/dL (0.6-1.0) Estimated GFR (Cockcroft-Gault) 99.7 Glucose Level 102 mg/dL (70-99) Calcium Level 7.9 mg/dL (8.5-10.1) Total Bilirubin 0.6 mg/dL (0.2-1.0) Direct Bilirubin 0.1 mg/dL (0.0-0.2) Aspartate Amino Transf (AST/SGOT) 32 U/L (15-37) Alanine Aminotransferase (ALT/SGPT) 57 U/L (14-59) Alkaline Phosphatase 56 U/L (46-116) Total Protein 5.1 g/dL (6.4-8.2) Albumin 2.2 g/dL (3.4-5.0) Comment Review of Relevant I have reviewed the following items trinh (where applicable) has been applied. Justifications for Admission General Conditions Other justification for admit: Acute respiratory failure with hypoxia, COVID-19 pneumonia Other Justification DESTINI MEAD MD May 29, 2021 13:20
--- NOTE | 2021-05-29 15:56 | NUR ---
SS following up with discharge planning. SS reviewed pt chart and discussed with pt RN. Pt is currently on Vapotherm at 40 liters and 85%. COVID19 positive. Pt finished IV Remdesivir. Pt on IV Rocephin and IV Decadron. SS will continue to follow for discharge planning.
[2021-05-29] MEDS: guaiFENesin/CODEINE 100mg/10mg 5 ML LIQUID PO PRN (23:42)
[2021-05-30] VITALS (15 sets, daily range): BP systolic 94–118; BP diastolic 51–73
[2021-05-30 04:58] LABS: BASO % 0 % (0-3); EOS # 0.2 x10^3/uL (0.0-0.7); EOS % 3 % (0-3); HEMATOCRIT 43.6 % (36.0-47.0); HEMOGLOBIN 14.8 g/dL (12.0-15.5); LYMPH # 0.7 x10^3/uL (1.0-4.8); LYMPH % 10 % (24-48); MEAN CORPUSCULAR HEMOGLOBIN 30 pg (25-35); MEAN CORPUSCULAR HGB CONC 34 g/dL (31-37); MEAN CORPUSCULAR VOLUME 87 fL (79-100); MONO # 0.6 x10^3/uL (0.0-1.1); MONO % 8 % (0-9); NEUT # 5.5 x10^3/uL (1.8-7.7); NEUT % 79 % (31-73); PLATELET COUNT 181 x10^3/uL (140-400); RED BLOOD COUNT 5.01 x10^6/uL (3.50-5.40); RED CELL DISTRIBUTION WIDTH 13.1 % (11.5-14.5)
[2021-05-30 05:22] LABS: CALCIUM 7.8 mg/dL (8.5-10.1); CREATININE 0.6 mg/dL (0.6-1.0); GFR 99.7; POTASSIUM 3.8 mmol/L (3.5-5.1)
[2021-05-30] MEDS: DEXAMETHASONE SOD PHOS 4 MG/ML VIAL IVP SCH (08:29)
[2021-05-30] MEDS: LACTOBACILLUS RHAMNOSUS GG 1 CAPSULE. PO SCH ×2 (08:30→21:01)
[2021-05-30] MEDS: ASCORBIC ACID 500 MG TABLET PO SCH ×2 (08:30→21:01)
[2021-05-30] MEDS: ZINC SULFATE 220 MG CAPSULE. PO SCH (08:30)
[2021-05-30] MEDS: ENOXAPARIN 40 MG/0.4 ML SYRINGE. SQ SCH (08:31)
[2021-05-30] MEDS: cefTRIAXone IV Push 1 GM VIAL. IVP SCH (08:33)
--- NOTE | 2021-05-30 08:34 | PDOC ---
PULMONARY PROGRESS NOTES DATE: 05/30/21 TIME: 08:34 Subjective Patient now on nasal cannula oxygen not more short of air Vitals Vital Signs Date Time Temp Pulse Resp B/P (MAP) Pulse Ox O2 Delivery O2 Flow Rate FiO2 05/30/21 08:30 95 VAPOTHERM 20.0 05/30/21 07:28 50 19 108/65 (79) 05/30/21 04:00 98.0 98.0 ROS: No Nausea, No Chest Pain, No Abdominal Pain General: Alert, No acute distress HEENT: Other (unremarkable) Cardiovascular: S1, S2, Other (sinus bradycardia. hr increases when wakes up and talks.) Abdomen: Soft, Non-tender Neuro Exam: Alert, Oriented, Normal Speech, No Focal Findings Extremities: No Edema Labs Laboratory Tests Test 05/29/21 04:40 05/30/21 04:30 Sodium Level 141 mmol/L (136-145) 141 mmol/L (136-145) Potassium Level 3.7 mmol/L (3.5-5.1) 3.8 mmol/L (3.5-5.1) Chloride Level 107 mmol/L (98-107) 107 mmol/L (98-107) Carbon Dioxide Level 29 mmol/L (21-32) 28 mmol/L (21-32) Anion Gap 5 (6-14) 6 (6-14) Blood Urea Nitrogen 19 mg/dL (7-20) 19 mg/dL (7-20) Creatinine 0.6 mg/dL (0.6-1.0) 0.6 mg/dL (0.6-1.0) Estimated GFR (Cockcroft-Gault) 99.7 99.7 Glucose Level 102 mg/dL (70-99) 102 mg/dL (70-99) Calcium Level 7.9 mg/dL (8.5-10.1) 7.8 mg/dL (8.5-10.1) Total Bilirubin 0.6 mg/dL (0.2-1.0) Direct Bilirubin 0.1 mg/dL (0.0-0.2) Aspartate Amino Transf (AST/SGOT) 32 U/L (15-37) Alanine Aminotransferase (ALT/SGPT) 57 U/L (14-59) Alkaline Phosphatase 56 U/L (46-116) Total Protein 5.1 g/dL (6.4-8.2) Albumin 2.2 g/dL (3.4-5.0) White Blood Count 7.0 x10^3/uL (4.0-11.0) Red Blood Count 5.01 x10^6/uL (3.50-5.40) Hemoglobin 14.8 g/dL (12.0-15.5) Hematocrit 43.6 % (36.0-47.0) Mean Corpuscular Volume 87 fL (79-100) Mean Corpuscular Hemoglobin 30 pg (25-35) Mean Corpuscular Hemoglobin Concent 34 g/dL (31-37) Red Cell Distribution Width 13.1 % (11.5-14.5) Platelet Count 181 x10^3/uL (140-400) Neutrophils (%) (Auto) 79 % (31-73) Lymphocytes (%) (Auto) 10 % (24-48) Monocytes (%) (Auto) 8 % (0-9) Eosinophils (%) (Auto) 3 % (0-3) Basophils (%) (Auto) 0 % (0-3) Neutrophils # (Auto) 5.5 x10^3/uL (1.8-7.7) Lymphocytes # (Auto) 0.7 x10^3/uL (1.0-4.8) Monocytes # (Auto) 0.6 x10^3/uL (0.0-1.1) Eosinophils # (Auto) 0.2 x10^3/uL (0.0-0.7) Basophils # (Auto) 0.0 x10^3/uL (0.0-0.2) Laboratory Tests Test 05/30/21 04:30 White Blood Count 7.0 x10^3/uL (4.0-11.0) Red Blood Count 5.01 x10^6/uL (3.50-5.40) Hemoglobin 14.8 g/dL (12.0-15.5) Hematocrit 43.6 % (36.0-47.0) Mean Corpuscular Volume 87 fL (79-100) Mean Corpuscular Hemoglobin 30 pg (25-35) Mean Corpuscular Hemoglobin Concent 34 g/dL (31-37) Red Cell Distribution Width 13.1 % (11.5-14.5) Platelet Count 181 x10^3/uL (140-400) Neutrophils (%) (Auto) 79 % (31-73) Lymphocytes (%) (Auto) 10 % (24-48) Monocytes (%) (Auto) 8 % (0-9) Eosinophils (%) (Auto) 3 % (0-3) Basophils (%) (Auto) 0 % (0-3) Neutrophils # (Auto) 5.5 x10^3/uL (1.8-7.7) Lymphocytes # (Auto) 0.7 x10^3/uL (1.0-4.8) Monocytes # (Auto) 0.6 x10^3/uL (0.0-1.1) Eosinophils # (Auto) 0.2 x10^3/uL (0.0-0.7) Basophils # (Auto) 0.0 x10^3/uL (0.0-0.2) Sodium Level 141 mmol/L (136-145) Potassium Level 3.8 mmol/L (3.5-5.1) Chloride Level 107 mmol/L (98-107) Carbon Dioxide Level 28 mmol/L (21-32) Anion Gap 6 (6-14) Blood Urea Nitrogen 19 mg/dL (7-20) Creatinine 0.6 mg/dL (0.6-1.0) Estimated GFR (Cockcroft-Gault) 99.7 Glucose Level 102 mg/dL (70-99) Calcium Level 7.8 mg/dL (8.5-10.1) Comments Diffuse infiltrates Impression . IMPRESSION: 1. Acute hypoxemic respiratory failure secondary to COVID-19 pneumonia. Status post remdesivir, tocilizumab. 2. Abnormal x-ray. 3. Unvaccinated 65-year-old female with positive SARS-CoV-2. 4. Depression. 5. Generalized weakness, possible myopathy Plan . Updated 05/30 MATT Vick Up to chair PT evaluate and treat Discussed with RN Updated 05/29 Complete course of remdesivir and dexamethasone Continue oxygen supplementation DVT prophylaxis Titrate FiO2 as tolerated Up to chair CINDY SOLORIO MD May 30, 2021 08:34
[2021-05-30] MEDS: guaiFENesin ORAL 200 MG/10 ML LIQUID. PO PRN (08:42)
--- NOTE | 2021-05-30 10:47 | PDOC ---
[employer] PROGRESS NOTE Date of Service DOS: DATE: 05/30/21 TIME: 10:45 Chief Complaint Chief Complaint Acute respiratory failure with hypoxia sepsis, obese, BMI 36 COVID-19 pneumonia History depression severe malnutrition Completed Remdesivir course Continue IV steroids x 10days History of Present Illness History of Present Illness 65-year-old female with no significant stated past medical history who presents as a transfer from [facility] due to worsening respiratory distress after recently been admitted for COVID-19 pneumonia. She states her symptoms began with shortness of breath on 05/16/2021. Her symptoms did not improve she went to the local clinic because she thought she had pneumonia COVID-19, and tested positive for COVID-19 on 05/22/2021. She presented to [facility] the next day and was admitted for respiratory failure. She has not been vaccinated against COVID-19. She was initiated on steroids, empiric antibiotics, remdesivir, and baricitinib. She received 1 dose of remdesivir today. When she began to require BiPAP, I accepted the transfer from the hospitalist at [facility] for higher level of care. 05/29/21 No acute events overnight. Sauraint 95% on 40L vapotherm. No more dyspneic than usual. No conerns from nursing. Patient's chart, labs, images were reviewed and discussed with RN 05/30/2021 No acute events tonight. Patient saturating 98% on 20 L Vapotherm. No concerns per nursing. Patient's chart, labs, images were reviewed and discussed with RN Vitals/I&O Vitals/I&O: Vital Signs Date Time Temp Pulse Resp B/P (MAP) Pulse Ox O2 Delivery O2 Flow Rate FiO2 05/30/21 09:50 60 18 94/58 (70) 95 Vapotherm 25.0 05/30/21 08:00 98.2 98.2 I & O 05/29/21 05/29/21 05/30/21 15:00 23:00 07:00 Intake Total 360 ml 50 ml Output Total 260 ml 425 ml 260 ml Balance 100 ml -375 ml -260 ml Physical Exam General: Alert, mild distress Heart: Regular rate Abdomen: Soft Extremities: No cyanosis Labs Labs: Laboratory Tests Test 05/30/21 04:30 White Blood Count 7.0 x10^3/uL (4.0-11.0) Red Blood Count 5.01 x10^6/uL (3.50-5.40) Hemoglobin 14.8 g/dL (12.0-15.5) Hematocrit 43.6 % (36.0-47.0) Mean Corpuscular Volume 87 fL (79-100) Mean Corpuscular Hemoglobin 30 pg (25-35) Mean Corpuscular Hemoglobin Concent 34 g/dL (31-37) Red Cell Distribution Width 13.1 % (11.5-14.5) Platelet Count 181 x10^3/uL (140-400) Neutrophils (%) (Auto) 79 % (31-73) Lymphocytes (%) (Auto) 10 % (24-48) Monocytes (%) (Auto) 8 % (0-9) Eosinophils (%) (Auto) 3 % (0-3) Basophils (%) (Auto) 0 % (0-3) Neutrophils # (Auto) 5.5 x10^3/uL (1.8-7.7) Lymphocytes # (Auto) 0.7 x10^3/uL (1.0-4.8) Monocytes # (Auto) 0.6 x10^3/uL (0.0-1.1) Eosinophils # (Auto) 0.2 x10^3/uL (0.0-0.7) Basophils # (Auto) 0.0 x10^3/uL (0.0-0.2) Sodium Level 141 mmol/L (136-145) Potassium Level 3.8 mmol/L (3.5-5.1) Chloride Level 107 mmol/L (98-107) Carbon Dioxide Level 28 mmol/L (21-32) Anion Gap 6 (6-14) Blood Urea Nitrogen 19 mg/dL (7-20) Creatinine 0.6 mg/dL (0.6-1.0) Estimated GFR (Cockcroft-Gault) 99.7 Glucose Level 102 mg/dL (70-99) Calcium Level 7.8 mg/dL (8.5-10.1) Comment Review of Relevant I have reviewed the following items trinh (where applicable) has been applied. Justifications for Admission General Conditions Other justification for admit: Acute respiratory failure with hypoxia, COVID-19 pneumonia Other Justification DESTINI MEAD MD May 30, 2021 10:47
--- NOTE | 2021-05-30 15:49 | NUR ---
SS following up with discharge planning. SS reviewed pt chart and discussed with pt RN. Pt is currently requiring oxygen at eight liters nasal canula. COVID19 positive. Pt on IV Rocephin and IV Decadron. PT ordered. Pt downgraded to Med Monitor. SS will continue to follow for discharge planning.
[2021-05-31 03:00] VITALS: BP 118/68
[2021-05-31] MEDS: guaiFENesin ORAL 200 MG/10 ML LIQUID. PO PRN (06:16)
[2021-05-31 07:00] VITALS: BP 135/60
--- NOTE | 2021-05-31 08:45 | PDOC ---
PULMONARY PROGRESS NOTES DATE: 05/31/21 TIME: 08:45 Subjective Patient currently on 10 L oxygen RN reports patient desaturation with exertion Patient does not feel more short of air Vitals Vital Signs Date Time Temp Pulse Resp B/P (MAP) Pulse Ox O2 Delivery O2 Flow Rate FiO2 05/31/21 08:38 90 High Flow Nasal Cannula 10.0 05/31/21 03:00 98.2 56 18 118/68 (85) 98.2 ROS: No Nausea, No Chest Pain, No Abdominal Pain General: Alert, No acute distress HEENT: Other (unremarkable) Cardiovascular: S1, S2, Other (sinus bradycardia. hr increases when wakes up and talks.) Abdomen: Soft, Non-tender Neuro Exam: Alert, Oriented, Normal Speech, No Focal Findings Extremities: No Edema Labs Laboratory Tests Test 05/30/21 04:30 White Blood Count 7.0 x10^3/uL (4.0-11.0) Red Blood Count 5.01 x10^6/uL (3.50-5.40) Hemoglobin 14.8 g/dL (12.0-15.5) Hematocrit 43.6 % (36.0-47.0) Mean Corpuscular Volume 87 fL (79-100) Mean Corpuscular Hemoglobin 30 pg (25-35) Mean Corpuscular Hemoglobin Concent 34 g/dL (31-37) Red Cell Distribution Width 13.1 % (11.5-14.5) Platelet Count 181 x10^3/uL (140-400) Neutrophils (%) (Auto) 79 % (31-73) Lymphocytes (%) (Auto) 10 % (24-48) Monocytes (%) (Auto) 8 % (0-9) Eosinophils (%) (Auto) 3 % (0-3) Basophils (%) (Auto) 0 % (0-3) Neutrophils # (Auto) 5.5 x10^3/uL (1.8-7.7) Lymphocytes # (Auto) 0.7 x10^3/uL (1.0-4.8) Monocytes # (Auto) 0.6 x10^3/uL (0.0-1.1) Eosinophils # (Auto) 0.2 x10^3/uL (0.0-0.7) Basophils # (Auto) 0.0 x10^3/uL (0.0-0.2) Sodium Level 141 mmol/L (136-145) Potassium Level 3.8 mmol/L (3.5-5.1) Chloride Level 107 mmol/L (98-107) Carbon Dioxide Level 28 mmol/L (21-32) Anion Gap 6 (6-14) Blood Urea Nitrogen 19 mg/dL (7-20) Creatinine 0.6 mg/dL (0.6-1.0) Estimated GFR (Cockcroft-Gault) 99.7 Glucose Level 102 mg/dL (70-99) Calcium Level 7.8 mg/dL (8.5-10.1) Comments Diffuse infiltrates Impression . IMPRESSION: 1. Acute hypoxemic respiratory failure secondary to COVID-19 pneumonia. Status post remdesivir, tocilizumab. 2. Abnormal x-ray. 3. Unvaccinated 65-year-old female with positive SARS-CoV-2. 4. Depression. 5. Generalized weakness, possible myopathy Plan . Updated 05/31 Up to chair PT to evaluate for possible discharge in next 24 to 48 hours 6-minute walk prior to discharge Continue current support updated 05/30 MATT Vick Up to chair PT evaluate and treat Discussed with RN Updated 05/29 Complete course of remdesivir and dexamethasone Continue oxygen supplementation DVT prophylaxis Titrate FiO2 as tolerated Up to chair CINDY SOLORIO MD May 31, 2021 08:45
[2021-05-31] MEDS: LACTOBACILLUS RHAMNOSUS GG 1 CAPSULE. PO SCH ×2 (08:47→20:29)
[2021-05-31] MEDS: ASCORBIC ACID 500 MG TABLET PO SCH ×2 (08:47→20:29)
[2021-05-31] MEDS: ZINC SULFATE 220 MG CAPSULE. PO SCH (08:47)
[2021-05-31] MEDS: DEXAMETHASONE SOD PHOS 4 MG/ML VIAL IVP SCH (08:47)
[2021-05-31] MEDS: ENOXAPARIN 40 MG/0.4 ML SYRINGE. SQ SCH (08:48)
[2021-05-31 11:00] VITALS: BP 96/71
--- NOTE | 2021-05-31 12:26 | PDOC ---
[employer] PROGRESS NOTE Date of Service DOS: DATE: 05/31/21 TIME: 12:24 Chief Complaint Chief Complaint Acute respiratory failure with hypoxia sepsis, obese, BMI 36 COVID-19 pneumonia History depression severe malnutrition Completed Remdesivir course Continue IV steroids x 10days History of Present Illness History of Present Illness 65-year-old female with no significant stated past medical history who presents as a transfer from [facility] due to worsening respiratory distress after recently been admitted for COVID-19 pneumonia. She states her symptoms began with shortness of breath on 05/16/2021. Her symptoms did not improve she went to the local clinic because she thought she had pneumonia COVID-19, and tested positive for COVID-19 on 05/22/2021. She presented to [facility] the next day and was admitted for respiratory failure. She has not been vaccinated against COVID-19. She was initiated on steroids, empiric antibiotics, remdesivir, and baricitinib. She received 1 dose of remdesivir today. When she began to require BiPAP, I accepted the transfer from the hospitalist at [facility] for higher level of care. 05/29/21 No acute events overnight. Sauraint 95% on 40L vapotherm. No more dyspneic than usual. No conerns from nursing. Patient's chart, labs, images were reviewed and discussed with RN 05/30/2021 No acute events tonight. Patient saturating 98% on 20 L Vapotherm. No concerns per nursing. Patient's chart, labs, images were reviewed and discussed with RN 05/31/2021 No acute events overnight. Patient saturating 90% on 10 L nasal cannula. No dyspnea reported. No concerns nursing. Transfer from the ICU to CVC unit. Patient's chart, labs, images were reviewed and discussed with RN Vitals/I&O Vitals/I&O: Vital Signs Date Time Temp Pulse Resp B/P (MAP) Pulse Ox O2 Delivery O2 Flow Rate FiO2 05/31/21 11:44 93 High Flow Nasal Cannula 10.0 05/31/21 07:00 98.7 54 18 135/60 (85) 98.7 I & O 05/30/21 05/30/21 05/31/21 15:00 23:00 07:00 Intake Total 120 ml 200 ml 150 ml Output Total 200 ml 40 ml 0 ml Balance -80 ml 160 ml 150 ml Physical Exam General: Alert, mild distress Heart: Regular rate Abdomen: Soft Extremities: No cyanosis Comment Review of Relevant I have reviewed the following items trinh (where applicable) has been applied. Justifications for Admission General Conditions Other justification for admit: Acute respiratory failure with hypoxia, COVID-19 pneumonia Other Justification DESTINI MEAD MD May 31, 2021 12:26
[2021-05-31 19:00] VITALS: BP 98/59
[2021-05-31 23:05] VITALS: BP 128/74
[2021-06-01 03:10] VITALS: BP 121/64
[2021-06-01 07:00] VITALS: BP 109/65
[2021-06-01] MEDS: DEXAMETHASONE SOD PHOS 4 MG/ML VIAL IVP SCH (08:27)
[2021-06-01] MEDS: ZINC SULFATE 220 MG CAPSULE. PO SCH (08:28)
[2021-06-01] MEDS: ENOXAPARIN 40 MG/0.4 ML SYRINGE. SQ SCH (08:28)
[2021-06-01] MEDS: ASCORBIC ACID 500 MG TABLET PO SCH ×2 (08:28→20:59)
[2021-06-01] MEDS: LACTOBACILLUS RHAMNOSUS GG 1 CAPSULE. PO SCH ×2 (08:28→20:58)
--- NOTE | 2021-06-01 08:50 | PDOC ---
PULMONARY PROGRESS NOTES DATE: 06/01/21 TIME: 08:49 Subjective Patient sit up in the chair yesterday no respiratory distress no increasing shortness of air Patient currently on 10 L oxygen Vitals Vital Signs Date Time Temp Pulse Resp B/P (MAP) Pulse Ox O2 Delivery O2 Flow Rate FiO2 06/01/21 03:10 98.1 45 121/64 (83) 97 Nasal Cannula 8.0 98.1 05/31/21 23:05 21 ROS: No Nausea, No Chest Pain, No Abdominal Pain General: Alert, No acute distress HEENT: Other (unremarkable) Cardiovascular: S1, S2, Other (sinus bradycardia. hr increases when wakes up and talks.) Abdomen: Soft, Non-tender Neuro Exam: Alert, Oriented, Normal Speech, No Focal Findings Extremities: No Edema Comments Diffuse infiltrates Impression . IMPRESSION: 1. Acute hypoxemic respiratory failure secondary to COVID-19 pneumonia. Status post remdesivir, tocilizumab. 2. Abnormal x-ray. 3. Unvaccinated 65-year-old female with positive SARS-CoV-2. 4. Depression. 5. Generalized weakness, possible myopathy Plan . Updated Continue PT Up to chair Discussed with RT will check oxygen saturation while walking in the hallway updated 05/31 Up to chair PT to evaluate for possible discharge in next 24 to 48 hours 6-minute walk prior to discharge Continue current support updated 05/30 MATT Vick Up to chair PT evaluate and treat Discussed with RN Updated 05/29 Complete course of remdesivir and dexamethasone Continue oxygen supplementation DVT prophylaxis Titrate FiO2 as tolerated Up to chair CINDY SOLORIO MD Jun 01, 2021 08:50
[2021-06-01 11:00] VITALS: BP 116/86
--- NOTE | 2021-06-01 13:09 | PDOC ---
[employer] PROGRESS NOTE Date of Service DOS: DATE: 06/01/21 TIME: 13:07 Chief Complaint Chief Complaint Acute respiratory failure with hypoxia sepsis, obese, BMI 36 COVID-19 pneumonia History depression severe malnutrition Completed Remdesivir course Continue IV steroids x 10days History of Present Illness History of Present Illness 65-year-old female with no significant stated past medical history who presents as a transfer from [facility] due to worsening respiratory distress after recently been admitted for COVID-19 pneumonia. She states her symptoms began with shortness of breath on 05/16/2021. Her symptoms did not improve she went to the local clinic because she thought she had pneumonia COVID-19, and tested positive for COVID-19 on 05/22/2021. She presented to [facility] the next day and was admitted for respiratory failure. She has not been vaccinated against COVID-19. She was initiated on steroids, empiric antibiotics, remdesivir, and baricitinib. She received 1 dose of remdesivir today. When she began to require BiPAP, I accepted the transfer from the hospitalist at [facility] for higher level of care. 05/29/21 No acute events overnight. Sauraint 95% on 40L vapotherm. No more dyspneic than usual. No conerns from nursing. Patient's chart, labs, images were reviewed and discussed with RN 05/30/2021 No acute events tonight. Patient saturating 98% on 20 L Vapotherm. No concerns per nursing. Patient's chart, labs, images were reviewed and discussed with RN 05/31/2021 No acute events overnight. Patient saturating 90% on 10 L nasal cannula. No dyspnea reported. No concerns nursing. Transfer from the ICU to CVC unit. Patient's chart, labs, images were reviewed and discussed with RN 06/01/2021 No acute events overnight. Patient seen examined next recliner. Sitting comfortably saturating 98% on 10 L nasal cannula. Will attempt to ambulate in the hallways with oxygen and see if patient requires home O2. Possible discharge today. Patient's chart, labs, images were reviewed and discussed with RN Vitals/I&O Vitals/I&O: Vital Signs Date Time Temp Pulse Resp B/P (MAP) Pulse Ox O2 Delivery O2 Flow Rate FiO2 06/01/21 08:00 Nasal Cannula 8.0 06/01/21 03:10 98.1 45 121/64 (83) 97 98.1 05/31/21 23:05 21 I & O 05/31/21 05/31/21 06/01/21 15:00 23:00 07:00 Intake Total 360 ml 290 ml 0 ml Output Total 0 ml Balance 360 ml 290 ml 0 ml Physical Exam General: Alert, mild distress Heart: Regular rate Abdomen: Soft Extremities: No cyanosis Comment Review of Relevant I have reviewed the following items trinh (where applicable) has been applied. Justifications for Admission General Conditions Other justification for admit: Acute respiratory failure with hypoxia, COVID-19 pneumonia Other Justification DESTINI MEAD MD Jun 01, 2021 13:09
--- NOTE | 2021-06-01 14:27 | NUR ---
SS following up with discharge planning. SS reviewed pt chart and discussed with RN. Pt is currently requiring oxygen at eight liters nasal canula. COVID19 positive. Pt on IV Decadron. Pt has no home oxygen. Six minute walk ordered to assess oxygen needs. Pt is from [place], [place]. Pt concerned with transportation to home but family contacted RN and stated that they could transport pt to home when ready for discharge. SS will continue to follow for discharge planning.
[2021-06-01 15:00] VITALS: BP 90/64
[2021-06-01 19:00] VITALS: BP 107/66
[2021-06-01 23:15] VITALS: BP 119/70
[2021-06-02 03:30] VITALS: BP 140/72
[2021-06-02 07:30] VITALS: BP 107/66
--- NOTE | 2021-06-02 08:18 | PDOC ---
PULMONARY PROGRESS NOTES DATE: 06/02/21 TIME: 08:18 Subjective Patient continues to improve not more short of air Set up in a chair yesterday Patient currently on 10 L oxygen Vitals Vital Signs Date Time Temp Pulse Resp B/P (MAP) Pulse Ox O2 Delivery O2 Flow Rate FiO2 06/02/21 03:30 97.8 20 140/72 (94) 92 Nasal Cannula 6.0 97.8 06/01/21 23:15 50 ROS: No Nausea, No Chest Pain, No Abdominal Pain General: Alert, No acute distress HEENT: Other (unremarkable) Cardiovascular: S1, S2, Other (sinus bradycardia. hr increases when wakes up and talks.) Abdomen: Soft, Non-tender Neuro Exam: Alert, Oriented, Normal Speech, No Focal Findings Extremities: No Edema Comments Diffuse infiltrates Impression . IMPRESSION: 1. Acute hypoxemic respiratory failure secondary to COVID-19 pneumonia. Status post remdesivir, tocilizumab. 2. Abnormal x-ray. 3. Unvaccinated 65-year-old female with positive SARS-CoV-2. 4. Depression. 5. Generalized weakness, possible myopathy Plan . Updated 06/02 Not ready for discharge, did not do well walking yesterday can, very weak, Continue working with PT Oxygen supplementation Up to chair updated/06/01 Continue PT Up to chair Discussed with RT will check oxygen saturation while walking in the hallway CINDY SOLORIO MD Jun 02, 2021 08:18
[2021-06-02] MEDS: LACTOBACILLUS RHAMNOSUS GG 1 CAPSULE. PO SCH ×2 (08:55→20:19)
[2021-06-02] MEDS: ASCORBIC ACID 500 MG TABLET PO SCH ×2 (08:55→20:19)
[2021-06-02] MEDS: DEXAMETHASONE SOD PHOS 4 MG/ML VIAL IVP SCH (08:55)
[2021-06-02] MEDS: ZINC SULFATE 220 MG CAPSULE. PO SCH (08:55)
[2021-06-02] MEDS: ENOXAPARIN 40 MG/0.4 ML SYRINGE. SQ SCH (08:56)
[2021-06-02 11:45] VITALS: BP 144/92
--- NOTE | 2021-06-02 12:01 | PDOC ---
[employer] PROGRESS NOTE Date of Service DOS: DATE: 06/02/21 TIME: 11:59 Chief Complaint Chief Complaint Acute respiratory failure with hypoxia sepsis, obese, BMI 36 COVID-19 pneumonia History depression severe malnutrition Completed Remdesivir course Continue IV steroids x 10days History of Present Illness History of Present Illness 65-year-old female with no significant stated past medical history who presents as a transfer from [facility] due to worsening respiratory distress after recently been admitted for COVID-19 pneumonia. She states her symptoms began with shortness of breath on 05/16/2021. Her symptoms did not improve she went to the local clinic because she thought she had pneumonia COVID-19, and tested positive for COVID-19 on 05/22/2021. She presented to [facility] the next day and was admitted for respiratory failure. She has not been vaccinated against COVID-19. She was initiated on steroids, empiric antibiotics, remdesivir, and baricitinib. She received 1 dose of remdesivir today. When she began to require BiPAP, I accepted the transfer from the hospitalist at [facility] for higher level of care. 05/29/21 No acute events overnight. Sauraint 95% on 40L vapotherm. No more dyspneic than usual. No conerns from nursing. Patient's chart, labs, images were reviewed and discussed with RN 05/30/2021 No acute events tonight. Patient saturating 98% on 20 L Vapotherm. No concerns per nursing. Patient's chart, labs, images were reviewed and discussed with RN 05/31/2021 No acute events overnight. Patient saturating 90% on 10 L nasal cannula. No dyspnea reported. No concerns nursing. Transfer from the ICU to CVC unit. Patient's chart, labs, images were reviewed and discussed with RN 06/01/2021 No acute events overnight. Patient seen examined next recliner. Sitting comfortably saturating 98% on 10 L nasal cannula. Will attempt to ambulate in the hallways with oxygen and see if patient requires home O2. Possible discharge today. Patient's chart, labs, images were reviewed and discussed with RN 06/02/2021 No acute events overnight. Patient is seen and examined bedside and resting comfortably. Saturating well on 8 L nasal cannula 92%. When attempted to ambulate the patient in the hallway she does need to be on oxygen however she is unable to tolerate 6-minute walk test. Regardless, patient needs to have rehab and she is unable to tolerate transportation home 3 hours away. Social work currently working with placement at this time. Patient's chart, labs, images were reviewed and discussed with RN Vitals/I&O Vitals/I&O: Vital Signs Date Time Temp Pulse Resp B/P (MAP) Pulse Ox O2 Delivery O2 Flow Rate FiO2 06/02/21 08:00 Nasal Cannula 8.0 06/02/21 03:30 97.8 20 140/72 (94) 92 97.8 06/01/21 23:15 50 I & O 06/01/21 06/01/21 06/02/21 15:00 23:00 07:00 Intake Total 450 ml 50 ml Balance 450 ml 50 ml Physical Exam General: Alert, mild distress Heart: Regular rate Abdomen: Soft Extremities: No cyanosis Comment Review of Relevant I have reviewed the following items trinh (where applicable) has been applied. Justifications for Admission General Conditions Other justification for admit: Acute respiratory failure with hypoxia, COVID-19 pneumonia Other Justification DESTINI MEAD MD Jun 02, 2021 12:01
--- NOTE | 2021-06-02 15:13 | NUR ---
SS following up with discharge planning. SS reviewed pt chart and discussed with pt RN. Pt is currently requiring oxygen at six liters nasal canula. COVID19 positive. Pt on IV Decadron. Pt has no home oxygen. Six minute walk attempted yesterday and pt was not able to tolerate the walk. Respiratory recommended more PT. PT/OT reordered. SS discussed with pt's daughter and discussed discharge planning to include skilled rehabilitation if needed. SS will continue to follow for discharge planning.
[2021-06-02 17:36] VITALS: BP 126/83
[2021-06-02 19:00] VITALS: BP 102/62
[2021-06-02 23:00] VITALS: BP 131/77
[2021-06-03 04:30] VITALS: BP 121/78
[2021-06-03 08:45] VITALS: BP 116/74
[2021-06-03] MEDS: DEXAMETHASONE SOD PHOS 4 MG/ML VIAL IVP SCH (09:50)
[2021-06-03] MEDS: ZINC SULFATE 220 MG CAPSULE. PO SCH (09:51)
[2021-06-03] MEDS: LACTOBACILLUS RHAMNOSUS GG 1 CAPSULE. PO SCH ×2 (09:51→21:00)
[2021-06-03] MEDS: ENOXAPARIN 40 MG/0.4 ML SYRINGE. SQ SCH (09:51)
[2021-06-03] MEDS: ASCORBIC ACID 500 MG TABLET PO SCH ×2 (09:51→21:00)
--- NOTE | 2021-06-03 11:00 | PDOC ---
[employer] PROGRESS NOTE Date of Service DOS: DATE: 06/03/21 TIME: 10:58 Chief Complaint Chief Complaint Acute respiratory failure with hypoxia sepsis, obese, BMI 36 COVID-19 pneumonia History depression severe malnutrition Completed Remdesivir course Continue IV steroids x 10days History of Present Illness History of Present Illness 65-year-old female with no significant stated past medical history who presents as a transfer from [facility] due to worsening respiratory distress after recently been admitted for COVID-19 pneumonia. She states her symptoms began with shortness of breath on 05/16/2021. Her symptoms did not improve she went to the local clinic because she thought she had pneumonia COVID-19, and tested positive for COVID-19 on 05/22/2021. She presented to [facility] the next day and was admitted for respiratory failure. She has not been vaccinated against COVID-19. She was initiated on steroids, empiric antibiotics, remdesivir, and baricitinib. She received 1 dose of remdesivir today. When she began to require BiPAP, I accepted the transfer from the hospitalist at [facility] for higher level of care. 05/29/21 No acute events overnight. Sauraint 95% on 40L vapotherm. No more dyspneic than usual. No conerns from nursing. Patient's chart, labs, images were reviewed and discussed with RN 05/30/2021 No acute events tonight. Patient saturating 98% on 20 L Vapotherm. No concerns per nursing. Patient's chart, labs, images were reviewed and discussed with RN 05/31/2021 No acute events overnight. Patient saturating 90% on 10 L nasal cannula. No dyspnea reported. No concerns nursing. Transfer from the ICU to CVC unit. Patient's chart, labs, images were reviewed and discussed with RN 06/01/2021 No acute events overnight. Patient seen examined next recliner. Sitting comfortably saturating 98% on 10 L nasal cannula. Will attempt to ambulate in the hallways with oxygen and see if patient requires home O2. Possible discharge today. Patient's chart, labs, images were reviewed and discussed with RN 06/02/2021 No acute events overnight. Patient is seen and examined bedside and resting comfortably. Saturating well on 8 L nasal cannula 92%. When attempted to ambulate the patient in the hallway she does need to be on oxygen however she is unable to tolerate 6-minute walk test. Regardless, patient needs to have rehab and she is unable to tolerate transportation home 3 hours away. Social work currently working with placement at this time. Patient's chart, labs, images were reviewed and discussed with RN 06/03/2021 No acute events overnight. Patient seen and examined bedside. Saturating 94% on 6 L nasal cannula. Still working with physical therapy in order to mobilize her better as she does require O2. Patient was 3 hours away still waiting for placement. Patient's chart, labs, images were reviewed and discussed with RN Vitals/I&O Vitals/I&O: Vital Signs Date Time Temp Pulse Resp B/P (MAP) Pulse Ox O2 Delivery O2 Flow Rate FiO2 06/03/21 08:45 98.1 74 22 116/74 (88) 92 Nasal Cannula 6.0 98.1 I & O 06/02/21 06/02/21 06/03/21 15:00 23:00 07:00 Intake Total 780 ml 250 ml 240 ml Balance 780 ml 250 ml 240 ml Physical Exam General: Alert, Oriented X3, Cooperative, mild distress Heart: Regular rate Abdomen: Soft Extremities: No clubbing, No cyanosis Skin: No rashes, No breakdown Comment Review of Relevant I have reviewed the following items trinh (where applicable) has been applied. Justifications for Admission General Conditions Other justification for admit: Acute respiratory failure with hypoxia, COVID-19 pneumonia Other Justification DESTINI MEAD MD Jun 03, 2021 11:00
[2021-06-03 12:38] VITALS: BP 114/74
[2021-06-03 16:00] VITALS: BP 101/67
--- NOTE | 2021-06-03 17:26 | PDOC ---
PULMONARY PROGRESS NOTES DATE: 06/03/21 TIME: 17:26 Subjective Patient continues to improve not more short of air Set up in a chair yesterday Patient currently on 10 L oxygen Vitals Vital Signs Date Time Temp Pulse Resp B/P (MAP) Pulse Ox O2 Delivery O2 Flow Rate FiO2 06/03/21 16:00 98.6 54 21 101/67 (78) 96 Nasal Cannula 6.0 98.6 ROS: No Nausea, No Chest Pain, No Abdominal Pain General: Alert, No acute distress HEENT: Other (unremarkable) Cardiovascular: S1, S2, Other (sinus bradycardia. hr increases when wakes up and talks.) Abdomen: Soft, Non-tender Neuro Exam: Alert, Oriented, Normal Speech, No Focal Findings Extremities: No Edema Comments Diffuse infiltrates Impression . IMPRESSION: 1. Acute hypoxemic respiratory failure secondary to COVID-19 pneumonia. Status post remdesivir, tocilizumab. 2. Abnormal x-ray. 3. Unvaccinated 65-year-old female with positive SARS-CoV-2. 4. Depression. 5. Generalized weakness, possible myopathy Plan . Updated 06/03 Patient improving Possible discharge in next 24 to 48 hours Continue current support updated 06/02 Not ready for discharge, did not do well walking yesterday can, very weak, Continue working with PT Oxygen supplementation Up to chair updated/06/01 Continue PT Up to chair Discussed with RT will check oxygen saturation while walking in the hallway CINDY SOLORIO MD Jun 03, 2021 17:26
[2021-06-03 20:00] VITALS: BP 112/71
[2021-06-03 23:48] VITALS: BP 141/75
[2021-06-04] VITALS (8 sets, daily range): BP systolic 90–149; BP diastolic 51–81
[2021-06-04] MEDS: ZINC SULFATE 220 MG CAPSULE. PO SCH (09:29)
[2021-06-04] MEDS: LACTOBACILLUS RHAMNOSUS GG 1 CAPSULE. PO SCH ×2 (09:29→20:15)
[2021-06-04] MEDS: ASCORBIC ACID 500 MG TABLET PO SCH ×2 (09:29→20:15)
[2021-06-04] MEDS: ENOXAPARIN 40 MG/0.4 ML SYRINGE. SQ SCH (09:30)
--- NOTE | 2021-06-04 12:03 | PDOC ---
[employer] PROGRESS NOTE Date of Service DOS: DATE: 06/04/21 TIME: 11:59 Chief Complaint Chief Complaint Acute respiratory failure with hypoxia sepsis, obese, BMI 36 COVID-19 pneumonia History depression severe malnutrition Completed Remdesivir course Continue IV steroids x 10days History of Present Illness History of Present Illness 65-year-old female with no significant stated past medical history who presents as a transfer from [facility] due to worsening respiratory distress after recently been admitted for COVID-19 pneumonia. She states her symptoms began with shortness of breath on 05/16/2021. Her symptoms did not improve she went to the local clinic because she thought she had pneumonia COVID-19, and tested positive for COVID-19 on 05/22/2021. She presented to [facility] the next day and was admitted for respiratory failure. She has not been vaccinated against COVID-19. She was initiated on steroids, empiric antibiotics, remdesivir, and baricitinib. She received 1 dose of remdesivir today. When she began to require BiPAP, I accepted the transfer from the hospitalist at [facility] for higher level of care. 05/29/21 No acute events overnight. Sauraint 95% on 40L vapotherm. No more dyspneic than usual. No conerns from nursing. Patient's chart, labs, images were reviewed and discussed with RN 05/30/2021 No acute events tonight. Patient saturating 98% on 20 L Vapotherm. No concerns per nursing. Patient's chart, labs, images were reviewed and discussed with RN 05/31/2021 No acute events overnight. Patient saturating 90% on 10 L nasal cannula. No dyspnea reported. No concerns nursing. Transfer from the ICU to CVC unit. Patient's chart, labs, images were reviewed and discussed with RN 06/01/2021 No acute events overnight. Patient seen examined next recliner. Sitting comfortably saturating 98% on 10 L nasal cannula. Will attempt to ambulate in the hallways with oxygen and see if patient requires home O2. Possible discharge today. Patient's chart, labs, images were reviewed and discussed with RN 06/02/2021 No acute events overnight. Patient is seen and examined bedside and resting comfortably. Saturating well on 8 L nasal cannula 92%. When attempted to ambulate the patient in the hallway she does need to be on oxygen however she is unable to tolerate 6-minute walk test. Regardless, patient needs to have rehab and she is unable to tolerate transportation home 3 hours away. Social work currently working with placement at this time. Patient's chart, labs, images were reviewed and discussed with RN 06/03/2021 No acute events overnight. Patient seen and examined bedside. Saturating 94% on 6 L nasal cannula. Still working with physical therapy in order to mobilize her better as she does require O2. Patient was 3 hours away still waiting for placement. Patient's chart, labs, images were reviewed and discussed with RN 06/04/2021 No acute events overnight. Patient seen examined bedside. Patient saturating 95% on 5 L nasal cannula. Patient may need transport to go to a nursing facility closer to her home which is 3 hours away. Patient's chart, labs, images were reviewed and discussed with RN Vitals/I&O Vitals/I&O: Vital Signs Date Time Temp Pulse Resp B/P (MAP) Pulse Ox O2 Delivery O2 Flow Rate FiO2 06/04/21 08:00 98.1 94 18 104/69 (81) 95 Nasal Cannula 5.0 98.1 I & O 06/03/21 06/03/21 06/04/21 15:00 23:00 07:00 Intake Total 400 ml 720 ml Balance 400 ml 720 ml Physical Exam General: Alert, Oriented X3, Cooperative, mild distress Heart: Regular rate Abdomen: Soft Extremities: No clubbing, No cyanosis Skin: No rashes, No breakdown Comment Review of Relevant I have reviewed the following items trinh (where applicable) has been applied. Justifications for Admission General Conditions Other justification for admit: Acute respiratory failure with hypoxia, COVID-19 pneumonia Other Justification DESTINI MEAD MD Jun 04, 2021 12:03
[2021-06-04] MEDS: predniSONE 20 MG TABLET PO SCH (15:01)
[2021-06-05 04:00] VITALS: BP 118/78
--- NOTE | 2021-06-05 06:57 | PDOC ---
[employer] PROGRESS NOTE Date of Service DOS: DATE: 06/05/21 TIME: 06:42 Chief Complaint Chief Complaint Acute respiratory failure with hypoxia sepsis, obese, BMI 36 COVID-19 pneumonia History depression severe malnutrition Completed Remdesivir course Continue IV steroids x 10days History of Present Illness History of Present Illness 65-year-old female with no significant stated past medical history who presents as a transfer from [facility] due to worsening respiratory distress after recently been admitted for COVID-19 pneumonia. She states her symptoms began with shortness of breath on 05/16/2021. Her symptoms did not improve she went to the local clinic because she thought she had pneumonia COVID-19, and tested positive for COVID-19 on 05/22/2021. She presented to [facility] the next day and was admitted for respiratory failure. She has not been vaccinated against COVID-19. She was initiated on steroids, empiric antibiotics, remdesivir, and baricitinib. She received 1 dose of remdesivir today. When she began to require BiPAP, I accepted the transfer from the hospitalist at [facility] for higher level of care. 05/29/21 No acute events overnight. Sauraint 95% on 40L vapotherm. No more dyspneic than usual. No conerns from nursing. Patient's chart, labs, images were reviewed and discussed with RN 05/30/2021 No acute events tonight. Patient saturating 98% on 20 L Vapotherm. No concerns per nursing. Patient's chart, labs, images were reviewed and discussed with RN 05/31/2021 No acute events overnight. Patient saturating 90% on 10 L nasal cannula. No dyspnea reported. No concerns nursing. Transfer from the ICU to CVC unit. Patient's chart, labs, images were reviewed and discussed with RN 06/01/2021 No acute events overnight. Patient seen examined next recliner. Sitting comfortably saturating 98% on 10 L nasal cannula. Will attempt to ambulate in the hallways with oxygen and see if patient requires home O2. Possible discharge today. Patient's chart, labs, images were reviewed and discussed with RN 06/02/2021 No acute events overnight. Patient is seen and examined bedside and resting comfortably. Saturating well on 8 L nasal cannula 92%. When attempted to ambulate the patient in the hallway she does need to be on oxygen however she is unable to tolerate 6-minute walk test. Regardless, patient needs to have rehab and she is unable to tolerate transportation home 3 hours away. Social work currently working with placement at this time. Patient's chart, labs, images were reviewed and discussed with RN 06/03/2021 No acute events overnight. Patient seen and examined bedside. Saturating 94% on 6 L nasal cannula. Still working with physical therapy in order to mobilize her better as she does require O2. Patient was 3 hours away still waiting for placement. Patient's chart, labs, images were reviewed and discussed with RN 06/04/2021 No acute events overnight. Patient seen examined bedside. Patient saturating 95% on 5 L nasal cannula. Patient may need transport to go to a nursing facility closer to her home which is 3 hours away. Patient's chart, labs, images were reviewed and discussed with RN 06/05/2021: Afebrile, breathing 6 L nasal cannula. Completed remdesivir, s/p Tocilizumab and baricitinib. We will continue treatment with oral prednisone and wean O2. Worked with PT yesterday, recommending home with assistance. At this time my evaluation patient states that she thinks she is able to discharge home independently with family care; she has previously discussed with her PCP about home health, but currently denies. If her desire for home health changes in the future recommend that she follow-up with her PCP. Had 6-minute walk yesterday and recommended 6 L oxygen at rest and with exertion. She feels comfortable discharging home today with family care. Greater than 30 minutes spent managing the discharge of this patient. Vitals/I&O Vitals/I&O: Vital Signs Date Time Temp Pulse Resp B/P (MAP) Pulse Ox O2 Delivery O2 Flow Rate FiO2 06/05/21 04:00 98.1 42 16 118/78 (91) 98 Nasal Cannula 6.0 98.1 I & O 06/04/21 06/04/21 06/05/21 14:59 22:59 06:59 Intake Total 600 ml 550 ml Balance 600 ml 550 ml Physical Exam General: Alert, Oriented X3, Cooperative, No acute distress Heart: Regular rate Lungs: Clear Abdomen: Soft Extremities: No clubbing, No cyanosis Skin: No rashes, No breakdown Comment Review of Relevant I have reviewed the following items trinh (where applicable) has been applied. Medications: Current Medications Medications (Trade) Dose Ordered Sig/Citlali Route PRN Reason Start Time Stop Time Status Last Admin Dose Admin Prednisone (Prednisone) 20 mg DAILY PO 06/04/21 12:30 06/04/21 15:01 Justifications for Admission General Conditions Other justification for admit: Acute respiratory failure with hypoxia, COVID-19 pneumonia Other Justification KIRILL TIM MD Jun 05, 2021 06:57
[2021-06-05 08:00] VITALS: BP 141/92
[2021-06-05] MEDS: LACTOBACILLUS RHAMNOSUS GG 1 CAPSULE. PO SCH (08:08)
[2021-06-05] MEDS: ZINC SULFATE 220 MG CAPSULE. PO SCH (08:08)
[2021-06-05] MEDS: ASCORBIC ACID 500 MG TABLET PO SCH (08:08)
[2021-06-05] MEDS: ENOXAPARIN 40 MG/0.4 ML SYRINGE. SQ SCH (08:09)
[2021-06-05] MEDS: predniSONE 20 MG TABLET PO SCH (08:09)
--- NOTE | 2021-06-05 08:36 | PDOC ---
PULMONARY PROGRESS NOTES DATE: 06/05/21 TIME: 08:36 Subjective Patient continues to improve not more short of air Set up in a chair yesterday Patient currently on 10 L oxygen Vitals Vital Signs Date Time Temp Pulse Resp B/P (MAP) Pulse Ox O2 Delivery O2 Flow Rate FiO2 06/05/21 04:00 98.1 42 16 118/78 (91) 98 Nasal Cannula 6.0 98.1 ROS: No Nausea, No Chest Pain, No Abdominal Pain General: Alert, No acute distress HEENT: Other (unremarkable) Lungs: Clear Cardiovascular: S1, S2, Other (sinus bradycardia. hr increases when wakes up and talks.) Abdomen: Soft, Non-tender Neuro Exam: Alert, Oriented, Normal Speech, No Focal Findings Extremities: No Edema Comments Diffuse infiltrates Impression . IMPRESSION: 1. Acute hypoxemic respiratory failure secondary to COVID-19 pneumonia. Status post remdesivir, tocilizumab. 2. Abnormal x-ray. 3. Unvaccinated 65-year-old female with positive SARS-CoV-2. 4. Depression. 5. Generalized weakness, possible myopathy Plan . Patient did well on 6-minute walk, requiring 6 L of oxygen Discharge home today Discussed with RN Patient instructed to follow-up with PCP regarding oxygen supplementation and titrations updated 06/03 Patient improving Possible discharge in next 24 to 48 hours Continue current support updated 06/02 Not ready for discharge, did not do well walking yesterday can, very weak, Continue working with PT Oxygen supplementation Up to chair updated Continue PT Up to chair Discussed with RT will check oxygen saturation while walking in the hallway CINDY SOLORIO MD Jun 05, 2021 08:36
--- NOTE | 2021-06-05 09:20 | PDOC3 ---
Discharge Summary Visit Information Date of Admission: May 24, 2021 Date of Discharge: Jun 05, 2021 Brief Hospital Course Allergies Allergies Coded Allergies Type Severity Reaction Last Updated Verified No Known Drug Allergies 05/24/21 No Vital Signs Vital Signs Date Time Temp Pulse Resp B/P (MAP) Pulse Ox O2 Delivery O2 Flow Rate FiO2 06/05/21 04:00 98.1 42 16 118/78 (91) 98 Nasal Cannula 6.0 98.1 Brief Hospital Course Ms. Webb is a 65 old female who presented with acute respiratory failure with hypoxia, COVID-19 pneumonia: 65-year-old female with no significant stated past medical history who presents as a transfer from [facility] due to worsening respiratory distress after recently been admitted for COVID-19 pneumonia. She states her symptoms began with shortness of breath on 05/16/2021. Her symptoms did not improve she went to the local clinic because she thought she had pneumonia COVID-19, and tested positive for COVID-19 on 05/22/2021. She presented to [facility] the next day and was admitted for respiratory failure. She has not been vaccinated against COVID-19. She was initiated on steroids, empiric antibiotics, remdesivir, and baricitinib. She received 1 dose of remdesivir today. When she began to require BiPAP, I accepted the transfer from the hospitalist at [facility] for higher level of care. 05/29/21 No acute events overnight. Sauraint 95% on 40L vapotherm. No more dyspneic than usual. No conerns from nursing. Patient's chart, labs, images were reviewed and discussed with RN 05/30/2021 No acute events tonight. Patient saturating 98% on 20 L Vapotherm. No concerns per nursing. Patient's chart, labs, images were reviewed and discussed with RN 05/31/2021 No acute events overnight. Patient saturating 90% on 10 L nasal cannula. No dyspnea reported. No concerns nursing. Transfer from the ICU to CVC unit. Patient's chart, labs, images were reviewed and discussed with RN 06/01/2021 No acute events overnight. Patient seen examined next recliner. Sitting comfortably saturating 98% on 10 L nasal cannula. Will attempt to ambulate in the hallways with oxygen and see if patient requires home O2. Possible discharge today. Patient's chart, labs, images were reviewed and discussed with RN 06/02/2021 No acute events overnight. Patient is seen and examined bedside and resting comfortably. Saturating well on 8 L nasal cannula 92%. When attempted to ambulate the patient in the hallway she does need to be on oxygen however she is unable to tolerate 6-minute walk test. Regardless, patient needs to have rehab and she is unable to tolerate transportation home 3 hours away. Social work currently working with placement at this time. Patient's chart, labs, images were reviewed and discussed with RN 06/03/2021 No acute events overnight. Patient seen and examined bedside. Saturating 94% on 6 L nasal cannula. Still working with physical therapy in order to mobilize her better as she does require O2. Patient was 3 hours away still waiting for placement. Patient's chart, labs, images were reviewed and discussed with RN 06/04/2021 No acute events overnight. Patient seen examined bedside. Patient saturating 95% on 5 L nasal cannula. Patient may need transport to go to a nursing facility closer to her home which is 3 hours away. Patient's chart, labs, images were reviewed and discussed with RN 06/05/2021: Afebrile, breathing 6 L nasal cannula. Completed remdesivir, s/p Tocilizumab and baricitinib. We will continue treatment with oral prednisone and wean O2. Worked with PT yesterday, recommending home with assistance. At this time my evaluation patient states that she thinks she is able to discharge home independently with family care; she has previously discussed with her PCP about home health, but currently denies. If her desire for home health changes in the future recommend that she follow-up with her PCP. Had 6-minute walk yesterday and recommended 6 L oxygen at rest and with exertion. She feels comfortable discharging home today with family care. Greater than 30 minutes spent managing the discharge of this patient. Discharge Information Condition at Discharge: Improved Disposition/Orders: D/C to Home Justicifation of Admission Dx: Justifications for Admission: Justification of Admission Dx: Yes KIRILL TIM MD Jun 05, 2021 09:20
[2021-06-05] MEDS ORDERED: PRED20TA PO (09:23)
--- NOTE | 2021-06-05 10:23 | NUR ---
SS following up with discharge planning. SS reviewed pt chart and discussed with pt RN. Pt is currently requiring oxygen at six liters nasal canula. COVID19 positive. Discharge order on the chart for home with self care. Pt is from [place], [place]. Six minute walk completed and pt needing six liters continuous oxygen. SS discussed with pt and pt's daughter via phone. Pt and pt's daughter wanting pt set up for oxygen at [facility] in [place], [place], ; fax [phone]. Script and clinical phoned and faxed to [facility]. SS spoke with commercial loan administrator Perla at [facility]. Pt's daughter insisting that she will transport pt to home and pt in agreement. [facility] to contact pt's daughter to arrange meeting place between [place] and [place] to supervisor lamp shades oxygen tanks for transport to home. Once tanks have been received pt's daughter will arrange to come supervisor lamp shades pt and transport to home. Pt's daughter and [facility] to contact SS once timeline has been established. SS will continue to follow for discharge planning. Addendum: 06/05/21 at 1101 by NORBERTO PATEL Pt's daughter contacted SS and requested transport be arranged to home so she can meet respiratory [employer] at pt's home. [facility] contacted and picking pt up between 1115 and 1130. Pt, pt's RN, and pt's daughter notified. Packet placed on chart.
--- NOTE | 2021-06-05 12:07 | NUR ---
patient discharged in stable condition requiring 6L NC. All lines removed from patient at time of discharge. All discharge paperwork and scripts given to patient at time of discharge along with follow up care. Patient transported via [facility] to home with self care and O2.
== END 2021-06-05 11:30 | disposition home or self-care (01) | DRG 871 ==
LOC: 1 WEST ICU 19:30
PROVIDERS: ADMIT Family Medicine; ATTEND Family Medicine
PROC: XW033H5 Introduction of Tocilizumab into Peripheral Vein, Percutaneous Approach, New Technology Group 5 (ICD-10-PCS; 2021-05-24)
PROC: 5A09357 Assistance with Respiratory Ventilation, Less than 24 Consecutive Hours, Continuous Positive Airway Pressure (ICD-10-PCS; 2021-05-24)
PROC: 5A09357 Assistance with Respiratory Ventilation, Less than 24 Consecutive Hours, Continuous Positive Airway Pressure (ICD-10-PCS; 2021-05-25)
PROC: XW033E5 Introduction of Remdesivir Anti-infective into Peripheral Vein, Percutaneous Approach, New Technology Group 5 (ICD-10-PCS; principal; 2021-05-28)
PROC: 5A0935A Assistance with Respiratory Ventilation, Less than 24 Consecutive Hours, High Flow/Velocity Cannula (ICD-10-PCS; 2021-05-30)
PROC: 5A0935A Assistance with Respiratory Ventilation, Less than 24 Consecutive Hours, High Flow/Velocity Cannula (ICD-10-PCS; 2021-05-31)
PROC: 5A0935A Assistance with Respiratory Ventilation, Less than 24 Consecutive Hours, High Flow/Velocity Cannula (ICD-10-PCS; 2021-06-03)
DX: A41.89 Other specified sepsis (principal); U07.1 COVID-19; J96.01 Acute respiratory failure with hypoxia; E43 Unspecified severe protein-calorie malnutrition; J12.82 Pneumonia due to coronavirus disease 2019; Z68.35 Body mass index [BMI] 35.0-35.9, adult; E66.9 Obesity, unspecified; F32.A Depression, unspecified; Z82.49 Family history of ischemic heart disease and other diseases of the circulatory system; Z83.3 Family history of diabetes mellitus; Z90.49 Acquired absence of other specified parts of digestive tract
CPT/HCPCS: 36415; 36600; 71045; 80048; 80076; 82728; 82805; 83615; 85025; 85379; 86140; 94618; 94660; 94760; J0696; J1100; J1200; J1650; J2060; J3262; J7050; J7512; 97530-GP; G0378; J7030